=== PATIENT | female | born 1945 | race Caucasian/White ===

== ENCOUNTER 2020-02-12 11:14 | Inpatient (IN) | payer MEDICARE, BC ==
[2020-02-13 02:57] VITALS: BP 130/80
[2020-02-13] MEDS ORDERED: Magnesium Hydroxide (MOM) 30 mL UDC PO PRN ×3 (03:16→03:30)
[2020-02-13] MEDS ORDERED: Maalox 30 mL Cup PO PRN ×3 (03:16→03:30)
[2020-02-13] MEDS ORDERED: Acetaminophen 500 MG TAB PO PRN (03:18)
[2020-02-13] MEDS: Multivitamin Tab PO SCH (08:10)
[2020-02-13] MEDS ORDERED: Multivitamin Tab PO SCH ×2 (09:00)
--- NOTE | 2020-02-13 13:06 | History & Physical ---
ADMIT DATE: 02/13/2020 HISTORY OF PRESENT ILLNESS: We have a 75-year-old female with hypertension and hyperlipidemia, who presents to the ER at [facility]. The patient has psychosis. The patient was transferred here. The patient admits to hypertension, hyperlipidemia. The patient denies any chest pain, shortness of breath, nausea, vomiting, abdominal pain, diarrhea. PAST MEDICAL HISTORY: 1. Hypertension. 2. Hyperlipidemia. PAST SURGICAL HISTORY: None. MEDICATIONS: List reviewed. ALLERGIES: None. SOCIAL HISTORY: Tobacco, IV drugs, ETOH negative. PHYSICAL EXAMINATION: VITAL SIGNS: Temperature is 97.6, pulse 80, respirations 20, blood pressure 130/80. HEENT: Normocephalic, atraumatic head exam. NECK: Supple. CARDIOVASCULAR: Regular rate and rhythm. LUNGS: Decreased breath sounds. ABDOMEN: Soft, nontender. EXTREMITIES: No edema, cyanosis or clubbing. NEUROLOGIC: Cranial nerve exam is grossly intact. ASSESSMENT AND PLAN: 1. Hypertension. 2. Hyperlipidemia. 3. Hyperglycemia. PLAN: The patient will be continued on home meds. We will discuss with psychiatrist plus medical management. JOB# [id number]
[2020-02-13 13:09] LABS: CHOLESTEROL 206 mg/dL (<200); LDL CHOLESTEROL 125 mg/dL (0-129); TRIGLYCERIDES 169 mg/dL (30-150)
--- NOTE | 2020-02-13 14:07 | History & Physical ---
ADMIT DATE: 02/13/2020 IDENTIFYING INFORMATION: The patient is a 75-year-old female. CHIEF COMPLAINT: "I'm here because my back hurts." HISTORY OF PRESENT ILLNESS: Danger to self, grave disability. The patient became agitated when her increase her psych medication. The patient also not eating and not sleeping, unable to care for herself under the care of Dr. England. When I talked to her the patient has no clue why she is here, she said "I am here because of my back problems. I told her she was in psych facility and she could not explain it. She said she was hospitalized before in a hospital because of back pain and because of similar situation, so she was not a very good historian. The patient denies any auditory or visual hallucinations. She reports she sleeps well, eats well. The patient onset of illness. The patient is not sure if she has any psychiatric condition, however, she has a history of depression. The patient with a history of depression and anxiety. The patient denies prior suicide attempt. She reports she was hospitalized because of her back problems. She does see a psychiatrist and she said because of back pain, so she is a poor historian, very poor insight. She denies prior suicide attempt. She does not want to harm herself today or anyone. The patient denies feeling paranoid. She sleeps well, eats well. PAST PSYCHIATRIC HISTORY: One prior hospitalization because of back pain in a psychiatric facility. SUBSTANCE ABUSE HISTORY: The patient denies. MEDICAL HISTORY: Deferred to the medical doctor. ALLERGIES: THE PATIENT IS ALLERGIC TO LEVOFLOXACIN, PENICILLIN, SULFAMETHOXAZOLE, . MEDICATIONS: The patient is not on any psychotropic medication. FAMILY AND SOCIAL HISTORY: The patient reports she has been a long time. Unable to tell me how long she has 2 children, a boy and a girl. The patient reports she has high school education, some college. She said she is reluctant. She is currently retired. Denies substance abuse, denies family psychotic disorder; however, she is a poor historian. MENTAL STATUS EXAMINATION: The patient was appropriately dressed, not very groomed. She was in bed. Her affect is flat. Thoughts are concrete. Speech is coherent. She was in a long-term memory is good. She remember her age, date of . Recent memory is poor. She is not sure of the results of the situation that led to her admission. The patient reports sleeps well, eats well. The patient denies any intent to harm herself or anyone; however, she has been unable to take care of her ADLs. The patient was a poor historian, unable to tell me the day. She unable tell me the materials associate. Long-term goals poor, cannot remember the materials associate. Her concentration is poor. Unable to answer questions appropriately. Recent memory is poor, does not really remember the events that her admission. Her insight about her illness is poor, does not realize her problems are. Judgment is poor with her being unable to care for self. 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 Her assets, she wants to get help. Negative poor coping skills. PLAN: The patient will be started on Cymbalta. We will do group therapy, milieu therapy, and individual therapy. ESTIMATED LENGTH OF STAY: 3-7 days. DISCHARGE CRITERIA: Decreasing depression, able to go to after discharge, outpatient treatment. JOB# [id number] FERNANDO
[2020-02-14 08:07] LABS: A1C 6.9 % (4.8-5.6)
[2020-02-14] MEDS: Atorvastatin Calcium 10 MG TAB PO SCH (09:10)
[2020-02-14] MEDS: Multivitamin Tab PO SCH (09:12)
--- NOTE | 2020-02-14 15:52 | Internal Medicine Prog Note ---
Internal Medicine Subjective - Subjective Service Date: 02/14/20 Patient seen and examined:: without staff Patient is:: awake Patient Complaints of:: congestion Per staff patient has:: no adverse event, no episodes of fall Internal Medicine Objective - Results Recent Labs: Laboratory Last Values POC Glucose 132 MG/DL (70 - 105) H 02/13/20 02:47 Hemoglobin A1c 6.9 % (4.8-5.6) H 02/13/20 10:35 Triglycerides 169 mg/dL (30-150) H 02/13/20 10:35 Cholesterol 206 mg/dL (<200) H 02/13/20 10:35 LDL Cholesterol 125 mg/dL (0-129) 02/13/20 10:35 HDL Cholesterol 53 mg/dL (>55) L 02/13/20 10:35 - Physical Exam Vitals and I&O: Vital Signs Temp 97.9 F 02/14/20 14:00 Pulse 92 02/14/20 14:00 Resp 20 02/14/20 14:00 BP 103/75 02/14/20 14:00 Pulse Ox 97 02/14/20 14:00 Intake & Output 02/13/20 02/14/20 02/14/20 18:59 06:59 18:59 Intake Total 1200 120 Balance 1200 120 Intake: Oral 1200 120 Other: # Voids 3 # Bowel Movements 3 Stool Characteristics Soft Soft Soft Brown Brown Brown Active Medications: Current Medications Acetaminophen (Tylenol) 650 mg PO Q4H PRN PRN Reason: Pain (Mild 1-3) Stop: 04/13/20 03:15 Acetaminophen (Tylenol Extra Strength) 1,000 mg PO Q6H PRN PRN Reason: Pain (Moderate 4-6) Stop: 04/13/20 03:17 Al Hydrox/Mg Hydrox/Simethicone (Maalox) 30 ml PO Q4HR PRN PRN Reason: GI DISTRESS Stop: 04/13/20 03:29 Atorvastatin Calcium (Lipitor) 10 mg PO DAILY [facility]; Protocol Stop: 04/14/20 08:59 Last Admin: 02/14/20 09:10 Dose: 10 mg Duloxetine HCl (Cymbalta) 60 mg PO DAILY [facility]; Protocol Stop: 04/14/20 09:59 Last Admin: 02/14/20 11:00 Dose: 60 mg Hydrochlorothiazide (Hctz) 12.5 mg PO DAILY [facility] Stop: 04/14/20 08:59 Last Admin: 02/14/20 09:10 Dose: 12.5 mg Ibuprofen (Motrin) 400 mg PO Q4H PRN PRN Reason: Pain (Severe 7-10) Stop: 04/13/20 03:17 Lorazepam (Ativan) 0.5 mg PO Q4HR PRN; Protocol PRN Reason: Anxiety Stop: 03/14/20 03:29 Magnesium Hydroxide (Milk Of Magnesia) 30 ml PO HS PRN PRN Reason: Constipation Metoprolol Tartrate (Lopressor) 25 mg PO BID [facility] Stop: 04/14/20 08:59 Last Admin: 02/14/20 09:12 Dose: 25 mg Multivitamins/Vitamin C (Theragran) 1 tab PO DAILY [facility] Stop: 04/13/20 08:59 Last Admin: 02/14/20 09:12 Dose: 1 tab Zolpidem Tartrate (Ambien) 5 mg PO HS PRN PRN Reason: Insomnia Stop: 04/13/20 03:29 General: weak HEENT: NC/AT, PERRLA, EOMI Neck: Supple Lungs: CTAB Cardiovascular: RRR, Normal S1, Normal S2 Abdomen: soft, non-tender Extremities: clear - Procedures Procedures: Procedures Procedure Code Date APPLY FOREARM SPLINT 64924 11/07/15 GROUP PSYCHOTHERAPY 21602 11/20/15 GROUP PSYCHOTHERAPY [id number] 11/20/15 IMMOBILIZATION OF LEFT LOWER ARM USING SPLINT [id number] 11/07/15 OTHER GROUP THERAPY 94.44 11/20/14 REPOSITION LEFT RADIUS WITH INT FIX, OPEN APPROACH [id number] 11/16/15 TREAT FX RAD INTRA-ARTICUL 05476 11/16/15 Internal Medicine Assmt/Plan - Assessment Assessment: 1. HTN 2. D.M. 3. Hypothyroidism - Plan Plan: check cbc, cmp reivewed labs d/w r.n. reviewed complete medical records
[2020-02-15] MEDS ORDERED: CHLORTHALIDONE 12.5 MG PO SCH (09:00)
[2020-02-15] MEDS ORDERED: PRAVASTATIN SODIUM 40 MG PO SCH (09:00)
[2020-02-15] MEDS: Atorvastatin Calcium 10 MG TAB PO SCH (09:07)
[2020-02-15] MEDS: Multivitamin Tab PO SCH (09:08)
[2020-02-15 15:38] LABS: % NEUTROPHILS 68.1 % (40-70); HEMATOCRIT 42.7 % (36-48); LYMPHOCYTES % (AUTO) 25.1 % (20.5-51.5); MEAN CORPUSCULAR HEMOGLOBIN 29 pg (27-31); MEAN CORPUSCULAR HGB CONC 33 % (32-36); MEAN CORPUSCULAR VOLUME 89 fL (79.0-98.0); PLATELET COUNT 210 K/uL (130-430); RED BLOOD COUNT 4.82 MIL/uL (4.2-6.2); RED CELL DISTRIBUTION WIDTH 14.3 % (9.0-15.0); WHITE BLOOD COUNT 7.9 K/uL (4.8-10.8)
[2020-02-15 15:39] LABS: BASOPHILS # (AUTO) 0.1 K/uL (0.0-0.2); BASOPHILS % (AUTO) 0.7 % (0.0-2.0); EOSINOPHILS # (AUTO) 0.1 K/uL (0.0-0.4); EOSINOPHILS % (AUTO) 0.9 % (0-4); MONOCYTES # (AUTO) 0.4 K/uL (0.0-1.0); MONOCYTES % (AUTO) 5.2 % (1.7-9.3); NEUTROPHILS # (AUTO) 5.4 K/uL (1.8-7.7)
--- NOTE | 2020-02-15 16:00 | Internal Medicine Prog Note ---
Internal Medicine Subjective - Subjective Service Date: 02/15/20 Patient seen and examined:: without staff Patient is:: awake Patient Complaints of:: congestion Per staff patient has:: no adverse event, no episodes of fall Internal Medicine Objective - Results Result Diagrams: 02/15/20 13:30 Recent Labs: Laboratory Last Values WBC 7.9 K/uL (4.8-10.8) 02/15/20 13:30 RBC 4.82 MIL/uL (4.2-6.2) 02/15/20 13:30 Hgb 14.0 g/dL (12.0-16.0) 02/15/20 13:30 Hct 42.7 % (36-48) 02/15/20 13:30 MCV 89 fL (79.0-98.0) 02/15/20 13:30 MCH 29 pg (27-31) 02/15/20 13:30 MCHC 33 % (32-36) 02/15/20 13:30 RDW 14.3 % (9.0-15.0) 02/15/20 13:30 Plt Count 210 K/uL (130-430) 02/15/20 13:30 MPV 8.8 fl (7.4-10.4) 02/15/20 13:30 Neut % (Auto) 68.1 % (40-70) 02/15/20 13:30 Lymph % (Auto) 25.1 % (20.5-51.5) 02/15/20 13:30 Pine % (Auto) 5.2 % (1.7-9.3) 02/15/20 13:30 Eos % (Auto) 0.9 % (0-4) 02/15/20 13:30 Baso % (Auto) 0.7 % (0.0-2.0) 02/15/20 13:30 Neut # (Auto) 5.4 K/uL (1.8-7.7) 02/15/20 13:30 Lymph # (Auto) 2.0 K/uL (1.0-5.5) 02/15/20 13:30 Pine # (Auto) 0.4 K/uL (0.0-1.0) 02/15/20 13:30 Eos # (Auto) 0.1 K/uL (0.0-0.4) 02/15/20 13:30 Baso # (Auto) 0.1 K/uL (0.0-0.2) 02/15/20 13:30 POC Glucose 132 MG/DL (70 - 105) H 02/13/20 02:47 Hemoglobin A1c 6.9 % (4.8-5.6) H 02/13/20 10:35 Triglycerides 169 mg/dL (30-150) H 02/13/20 10:35 Cholesterol 206 mg/dL (<200) H 02/13/20 10:35 LDL Cholesterol 125 mg/dL (0-129) 02/13/20 10:35 HDL Cholesterol 53 mg/dL (>55) L 02/13/20 10:35 TSH 3.96 uIU/ml (0.358-3.740) H 02/15/20 13:30 Coronavirus (PCR) NOT DETECTED (NOT DETECTD) 02/13/20 18:40 - Physical Exam Vitals and I&O: Vital Signs Temp 97.7 F 02/15/20 14:00 Pulse 91 02/15/20 14:00 Resp 20 02/15/20 14:00 BP 143/54 02/15/20 14:00 Pulse Ox 96 02/15/20 14:00 Intake & Output 02/14/20 02/15/20 02/15/20 18:59 06:59 18:59 Intake Total 860 120 Balance 860 120 Intake: Oral 860 120 Other: # Voids 3 3 # Bowel Movements 0 Stool Characteristics Soft Soft Soft Brown Brown Brown Active Medications: Current Medications Acetaminophen (Tylenol) 650 mg PO Q4H PRN PRN Reason: Pain (Mild 1-3) Stop: 04/13/20 03:15 Acetaminophen (Tylenol Extra Strength) 1,000 mg PO Q6H PRN PRN Reason: Pain (Moderate 4-6) Stop: 04/13/20 03:17 Al Hydrox/Mg Hydrox/Simethicone (Maalox) 30 ml PO Q4HR PRN PRN Reason: GI DISTRESS Stop: 04/13/20 03:29 Atorvastatin Calcium (Lipitor) 10 mg PO DAILY [facility]; Protocol Stop: 04/14/20 08:59 Last Admin: 02/15/20 09:07 Dose: 10 mg Duloxetine HCl (Cymbalta) 60 mg PO DAILY [facility]; Protocol Stop: 04/14/20 09:59 Last Admin: 02/15/20 09:07 Dose: 60 mg Hydrochlorothiazide (Hctz) 12.5 mg PO DAILY [facility] Stop: 04/14/20 08:59 Last Admin: 02/15/20 09:07 Dose: 12.5 mg Ibuprofen (Motrin) 400 mg PO Q4H PRN PRN Reason: Pain (Severe 7-10) Stop: 04/13/20 03:17 Lorazepam (Ativan) 0.5 mg PO Q4HR PRN; Protocol PRN Reason: Anxiety Stop: 03/14/20 03:29 Last Admin: 02/15/20 06:58 Dose: 0.5 mg Magnesium Hydroxide (Milk Of Magnesia) 30 ml PO HS PRN PRN Reason: Constipation Metoprolol Succinate (Toprol Xl) 50 mg PO DAILY [facility] Stop: 04/15/20 08:59 Last Admin: 02/15/20 09:07 Dose: 50 mg Multivitamins/Vitamin C (Theragran) 1 tab PO DAILY [facility] Stop: 04/13/20 08:59 Last Admin: 02/15/20 09:08 Dose: 1 tab Quetiapine Fumarate (Seroquel) 12.5 mg PO BID [facility]; Protocol Stop: 04/15/20 16:59 Zolpidem Tartrate (Ambien) 5 mg PO HS PRN PRN Reason: Insomnia Stop: 04/13/20 03:29 General: weak HEENT: NC/AT, PERRLA, EOMI Neck: Supple Lungs: CTAB Cardiovascular: RRR, Normal S1, Normal S2 Abdomen: soft, non-tender Extremities: clear - Procedures Procedures: Procedures Procedure Code Date APPLY FOREARM SPLINT 25577 11/07/15 GROUP PSYCHOTHERAPY 05430 11/20/15 GROUP PSYCHOTHERAPY GZHZZZZ 11/20/15 IMMOBILIZATION OF LEFT LOWER ARM USING SPLINT [id number] 11/07/15 OTHER GROUP THERAPY 94.44 11/20/14 REPOSITION LEFT RADIUS WITH INT FIX, OPEN APPROACH [id number] 11/16/15 TREAT FX RAD INTRA-ARTICUL 63902 11/16/15 Internal Medicine Assmt/Plan - Assessment Assessment: 1. HTN 2. D.M. 3. Hypothyroidism - Plan Plan: check bmp d/w r.n. reviewed complete medical records Nutritional Asmnt/Malnutr-PDOC - Dietary Evaluation Malnutrition Findings (Please click <Entered> for more info): Nutritional Asmnt/Malnutrition Start: 02/15/20 11: 54 Text: Status: Complete Freq: Protocol: Document 02/15/20 12:02 ADIS (Rec: 02/15/20 12:14 ADIS [id number]) Nutritional Asmnt/Malnutrition Patient General Information Nutritional Screening Moderate Risk Diagnosis Psychosis Pertinent Medical Hx/Surgical Hx HTN, Hyperlipidemia Subjective Information Pt is a 75-year-old female admitted on 02/12 d/t grave disability and danger to self. Pt is eating an estimated 0- 75%% of meals Per Meal/ Nutrition Activity Record since admit date (x2 days), pt ate 75% meals on admit day and refused breakfast and lunch yesterday, eating 25% dinner. Dietary is currently providing an estimated 2020 kcals and 95 gm Pro. Visited pt in room, HEAD [employer] WAITER/WAITRESS stated the patient is refusing everything today, just having liquids. Got her a Glucerna shake in case she decides not to eat lunch. Pt did not want to talk further. Pt need some adjusting time, will F/U in 3- 5 days and continue to monitor PO intake and provide Glucerna as appropriate. Recommend adding CCHO to current diet d/t labs (02/12) A1c 6.9%, POC glucose 132. Anthropometrics HT: 58 WT: 203 LB (92.27 kg) ABW: 156 LB (70.80 kg) BMI: 30.87 (Obese, class I) GI/ Skin Integrity GI: WNL, Soft, Large, Non- tender BM: 02/12 x3 I/O: 980/Not Noted Skin: Wound and bruises, RT/LT hand bruise, LT Forearm skin tear Ari: 17 Diet Order: Cardiac Estimated Energy Needs: (Obese , ABW) 2371-1882 kcals (20-25 kcals/ kg) 60-70g Pro (0.8-1.0 g/kg) 9403-1088 ml (20-25 ml/kg) Current Diet Order/ Nutrition Support Cardiac Patient / S.O Can Pertinent Medications Maalox (PRN), Lipitor, Hydrochlorothiazide, MOM (PRN) , Theragran Pertinent Labs 02/12: Triglycerides 169, Cholesterol 206, HDL 53, A1c 6 .9%, POC glucose 132 Nutritional Hx/Data Height 1.73 m Height (Calculated Centimeters) 172.7 Current Weight (lbs) 92.079 kg Weight (Calculated Kilograms) 92.1 Weight (Calculated Grams) 74777.3 [place] Body Weight 140 LB (63.64 kg) % [place] Body Weight 145 Body Mass Index (BMI) 30.9 Weight Status Obese GI Symptoms Last BM 02/12 x3 Skin Integrity/Comment: Skin: Wound and bruises, RT/LT hand bruise, LT Forearm skin tear Ari: 17 Current %PO Fair (50-74%) Estimated Nutritional Goals BEE in Kcals: Adj wt of IBW Calories/Kcals/Kg 20-25 Kcals Calculated 6395-0995 Protein: Adj wt of IBW Protein g/k.8-1.0 Protein Calculated 60-70 Fluid: ml 5452-7351 ml (20-25 ml/kg) Nutritional Problem 2. Problem Problem Obese, class I Etiology r/t consistent energy overconsumption Signs/Symptoms: aeb BMI >30 (30.90). 1. Problem Problem Impaired nutrient utilization Etiology r/t endocrine dysfuction Signs/Symptoms: aeb labs (02/12) A1c 6.9%, POC glucose 132. Intervention/Recommendation Comments 1.Recommend adding CCHO to current diet Rx. 2.Provide Glucerna Hunger Smart as appropriate when PO < 50%. Expected Outcomes/Goals Expected Outcomes/Goals 1.PO intake to meet 75% of estimated nutritional needs. 2.Monitor PO intake, wt, nutrition related labs to trend WNL, and skin integrity to trend WNL. 3.F/U as moderate risk in 3-5 days, 02/17-02/19.
--- NOTE | 2020-02-15 18:05 | Progress Notes ---
DATE: 02/15/2020 [id number] SUBJECTIVE: Chart was reviewed and the patient interviewed. Also discussed the patient's condition with the staff and reviewed records and labs. The patient is still angry and in irritable mood. The patient also is exhibiting lack of motivations and is still showing poor interest and isolative and withdrawn. The patient also is sleeping a lot and refusing to eat. Also, the patient has episodes of yelling and screaming for no reason. During interview, the patient seems to be responding to stimuli and easily irritable and easily agitated. Otherwise, the patient is compliant with taking Cymbalta that was increased to 60 mg every day yesterday with no side effects. ASSESSMENT: The patient is still depressed, but also seems to be psychotic and agitated. TREATMENT PLAN: Continue to monitor behavior and condition closely. Also, we will add Seroquel in a dose of 12.5 mg twice a day. Also, continue to work on both her ineffective coping as well as her psychosis and continue to follow up closely. JOB# [id number]
--- NOTE | 2020-02-15 18:35 | Progress Notes ---
DATE: 02/14/2020 PSYCHIATRIC PROGRESS NOTE This also will be for yesterday 02/14/2020. SUBJECTIVE: Chart reviewed and the patient interviewed. Also discussed the patient's condition with the staff and reviewed records and labs. The patient continued to be in a depressed mood and isolative and withdrawn. The patient also is not interacting much with peers or others and she wants to be left alone. The patient also is easily irritable and easily agitated, but is not exhibiting any behavioral problems except at times seems to be actively responding. Also, the patient is selectively interacting with others and selectively mute during interview. The patient is showing no motivations and seems to be hopeless. ASSESSMENT: The patient is still severely depressed and seems to be psychotic and responding. TREATMENT PLAN: Continue to monitor her behavior and her condition. Also, we will increase Cymbalta to 60 mg every day and continue to follow up closely. JOB# [id number]
[2020-02-16] MEDS: Atorvastatin Calcium 10 MG TAB PO SCH (08:18)
[2020-02-16] MEDS: Multivitamin Tab PO SCH (08:19)
--- NOTE | 2020-02-16 11:40 | Progress Notes ---
DATE: 02/16/2020 Covering for Iker England M.D. SUBJECTIVE: The patient was interviewed. Case was discussed with staff. Chart and records were reviewed. The patient has had poor motivation for treatment, has been withdrawn, has been depressed, has been with poor hygiene. Staff needs significant prompting and assistance to help the patient attend to her basic hygiene and eat her meals. The patient was recently started on Seroquel. No side effects noted. The patient is selectively mute throughout the interview. Poor eye contact, not engaging at all with the interview, appears to be restless and anxious in her wheelchair. MENTAL STATUS EXAMINATION: The patient is with improved hygiene, freshly showered with the assistance of staff. She is restless and anxious in her wheelchair. She has poor eye contact. Speech is selectively mute. Mood and affect appear to be anxious and labile. Thought process appears to be somewhat disorganized at this time. Unable to assess for suicidal or homicidal thoughts. She appears to be internally preoccupied. The patient is alert and oriented to her name, otherwise unable to assess. Insight, judgment and impulse control appear to be quite poor at this time. ASSESSMENT AND PLAN: The patient continues to require acute inpatient psychiatric hospitalization. We will continue her medications as prescribed. No side effects have been noted. We will also encourage the patient to verbalize her needs and participate in group and milieu therapy. JOB# [id number]
--- NOTE | 2020-02-16 14:54 | Internal Medicine Prog Note ---
Internal Medicine Subjective - Subjective Service Date: 02/16/20 Patient seen and examined:: without staff (no polyuria, no polyphagia, no polydypsia) Patient is:: awake Patient Complaints of:: congestion Per staff patient has:: no adverse event, no episodes of fall Internal Medicine Objective - Results Result Diagrams: 02/15/20 13:30 Recent Labs: Laboratory Last Values WBC 7.9 K/uL (4.8-10.8) 02/15/20 13:30 RBC 4.82 MIL/uL (4.2-6.2) 02/15/20 13:30 Hgb 14.0 g/dL (12.0-16.0) 02/15/20 13:30 Hct 42.7 % (36-48) 02/15/20 13:30 MCV 89 fL (79.0-98.0) 02/15/20 13:30 MCH 29 pg (27-31) 02/15/20 13:30 MCHC 33 % (32-36) 02/15/20 13:30 RDW 14.3 % (9.0-15.0) 02/15/20 13:30 Plt Count 210 K/uL (130-430) 02/15/20 13:30 MPV 8.8 fl (7.4-10.4) 02/15/20 13:30 Neut % (Auto) 68.1 % (40-70) 02/15/20 13:30 Lymph % (Auto) 25.1 % (20.5-51.5) 02/15/20 13:30 [place] % (Auto) 5.2 % (1.7-9.3) 02/15/20 13:30 Eos % (Auto) 0.9 % (0-4) 02/15/20 13:30 Baso % (Auto) 0.7 % (0.0-2.0) 02/15/20 13:30 Neut # (Auto) 5.4 K/uL (1.8-7.7) 02/15/20 13:30 Lymph # (Auto) 2.0 K/uL (1.0-5.5) 02/15/20 13:30 [place] # (Auto) 0.4 K/uL (0.0-1.0) 02/15/20 13:30 Eos # (Auto) 0.1 K/uL (0.0-0.4) 02/15/20 13:30 Baso # (Auto) 0.1 K/uL (0.0-0.2) 02/15/20 13:30 POC Glucose 132 MG/DL (70 - 105) H 02/13/20 02:47 Hemoglobin A1c 6.9 % (4.8-5.6) H 02/13/20 10:35 Triglycerides 169 mg/dL (30-150) H 02/13/20 10:35 Cholesterol 206 mg/dL (<200) H 02/13/20 10:35 LDL Cholesterol 125 mg/dL (0-129) 02/13/20 10:35 HDL Cholesterol 53 mg/dL (>55) L 02/13/20 10:35 TSH 3.96 uIU/ml (0.358-3.740) H 02/15/20 13:30 Coronavirus (PCR) NOT DETECTED (NOT DETECTD) 02/13/20 18:40 - Physical Exam Vitals and I&O: Vital Signs Temp 97.4 F 02/16/20 06:11 Pulse 84 02/16/20 08:19 Resp 19 02/16/20 06:11 BP 153/71 02/16/20 08:19 Pulse Ox 94 02/16/20 06:11 Intake & Output 02/15/20 02/16/20 02/16/20 18:59 06:59 18:59 Intake Total 860 300 Output Total 1 Balance 860 299 Intake: Oral 860 300 Output: Urine/Stool Mix 1 Other: # Voids 3 1 # Bowel Movements 1 0 Stool Characteristics Soft Soft Soft Brown Brown Brown Active Medications: Current Medications Acetaminophen (Tylenol) 650 mg PO Q4H PRN PRN Reason: Pain (Mild 1-3) Stop: 04/13/20 03:15 Acetaminophen (Tylenol Extra Strength) 1,000 mg PO Q6H PRN PRN Reason: Pain (Moderate 4-6) Stop: 04/13/20 03:17 Al Hydrox/Mg Hydrox/Simethicone (Maalox) 30 ml PO Q4HR PRN PRN Reason: GI DISTRESS Stop: 04/13/20 03:29 Atorvastatin Calcium (Lipitor) 10 mg PO DAILY [facility]; Protocol Stop: 04/14/20 08:59 Last Admin: 02/16/20 08:18 Dose: 10 mg Duloxetine HCl (Cymbalta) 60 mg PO DAILY [facility]; Protocol Stop: 04/14/20 09:59 Last Admin: 02/16/20 08:18 Dose: 60 mg Hydrochlorothiazide (Hctz) 12.5 mg PO DAILY [facility] Stop: 04/14/20 08:59 Last Admin: 02/16/20 08:19 Dose: 12.5 mg Ibuprofen (Motrin) 400 mg PO Q4H PRN PRN Reason: Pain (Severe 7-10) Stop: 04/13/20 03:17 Lorazepam (Ativan) 0.5 mg PO Q4HR PRN; Protocol PRN Reason: Anxiety Stop: 03/14/20 03:29 Last Admin: 02/15/20 06:58 Dose: 0.5 mg Magnesium Hydroxide (Milk Of Magnesia) 30 ml PO HS PRN PRN Reason: Constipation Metoprolol Succinate (Toprol Xl) 50 mg PO DAILY [facility] Stop: 04/15/20 08:59 Last Admin: 02/16/20 08:19 Dose: 50 mg Multivitamins/Vitamin C (Theragran) 1 tab PO DAILY [facility] Stop: 04/13/20 08:59 Last Admin: 02/16/20 08:19 Dose: 1 tab Quetiapine Fumarate (Seroquel) 12.5 mg PO BID [facility]; Protocol Stop: 04/15/20 16:59 Last Admin: 02/16/20 08:19 Dose: 12.5 mg Zolpidem Tartrate (Ambien) 5 mg PO HS PRN PRN Reason: Insomnia Stop: 04/13/20 03:29 General: weak HEENT: NC/AT, PERRLA, EOMI Neck: Supple Lungs: CTAB Cardiovascular: RRR, Normal S1, Normal S2 Abdomen: soft, non-tender Extremities: clear - Procedures Procedures: Procedures Procedure Code Date APPLY FOREARM SPLINT 21214 11/07/15 GROUP PSYCHOTHERAPY 82564 11/20/15 GROUP PSYCHOTHERAPY GZHZZZZ 11/20/15 IMMOBILIZATION OF LEFT LOWER ARM USING SPLINT [id number] 11/07/15 OTHER GROUP THERAPY 94.44 11/20/14 REPOSITION LEFT RADIUS WITH INT FIX, OPEN APPROACH [id number] 11/16/15 TREAT FX RAD INTRA-ARTICUL 40456 11/16/15 Internal Medicine Assmt/Plan - Assessment Assessment: 1. DM, new diagnosis 2. HTN 3. Hypothyroidism - Plan Plan: will start glucophage once lab results are back d/w r.n. reviewed complete medical records Nutritional Asmnt/Malnutr-PDOC - Dietary Evaluation Malnutrition Findings (Please click <Entered> for more info): Nutritional Asmnt/Malnutrition Start: 02/15/20 11: 54 Text: Status: Complete Freq: Protocol: Document 02/15/20 12:02 ADIS (Rec: 02/15/20 12:14 ADIS [email or web address] [email or web address]) Nutritional Asmnt/Malnutrition Patient General Information Nutritional Screening Moderate Risk Diagnosis Psychosis Pertinent Medical Hx/Surgical Hx HTN, Hyperlipidemia Subjective Information Pt is a 75-year-old female admitted on 02/12 d/t grave disability and danger to self. Pt is eating an estimated 0- 75%% of meals Per Meal/ Nutrition Activity Record since admit date (x2 days), pt ate 75% meals on admit day and refused breakfast and lunch yesterday, eating 25% dinner. Dietary is currently providing an estimated 2020 kcals and 95 gm Pro. Visited pt in room, DIRECTOR OF DEVELOPMENT stated the patient is refusing everything today, just having liquids. Got her a Glucerna shake in case she decides not to eat lunch. Pt did not want to talk further. Pt need some adjusting time, will F/U in 3- 5 days and continue to monitor PO intake and provide Glucerna as appropriate. Recommend adding CCHO to current diet d/t labs (02/12) A1c 6.9%, POC glucose 132. Anthropometrics HT: 58 WT: 203 LB (92.27 kg) ABW: 156 LB (70.80 kg) BMI: 30.87 (Obese, class I) GI/ Skin Integrity GI: WNL, Soft, Large, Non- tender BM: 02/12 x3 I/O: 980/Not Noted Skin: Wound and bruises, RT/LT hand bruise, LT Forearm skin tear Ari: 17 Diet Order: Cardiac Estimated Energy Needs: (Obese , ABW) 1324-8797 kcals (20-25 kcals/ kg) 60-70g Pro (0.8-1.0 g/kg) 6207-0394 ml (20-25 ml/kg) Current Diet Order/ Nutrition Support Cardiac Patient / S.O Can Pertinent Medications Maalox (PRN), Lipitor, Hydrochlorothiazide, MOM (PRN) , Theragran Pertinent Labs 02/12: Triglycerides 169, Cholesterol 206, HDL 53, A1c 6 .9%, POC glucose 132 Nutritional Hx/Data Height 1.73 m Height (Calculated Centimeters) 172.7 Current Weight (lbs) 92.079 kg Weight (Calculated Kilograms) 92.1 Weight (Calculated Grams) 40965.3 [place] Body Weight 140 LB (63.64 kg) % [place] Body Weight 145 Body Mass Index (BMI) 30.9 Weight Status Obese GI Symptoms Last BM 02/12 x3 Skin Integrity/Comment: Skin: Wound and bruises, RT/LT hand bruise, LT Forearm skin tear Ari: 17 Current %PO Fair (50-74%) Estimated Nutritional Goals BEE in Kcals: Adj wt of IBW Calories/Kcals/Kg 20-25 Kcals Calculated 2435-2052 Protein: Adj wt of IBW Protein g/k.8-1.0 Protein Calculated 60-70 Fluid: ml 7933-3605 ml (20-25 ml/kg) Nutritional Problem 2. Problem Problem Obese, class I Etiology r/t consistent energy overconsumption Signs/Symptoms: aeb BMI >30 (30.90). 1. Problem Problem Impaired nutrient utilization Etiology r/t endocrine dysfuction Signs/Symptoms: aeb labs (02/12) A1c 6.9%, POC glucose 132. Intervention/Recommendation Comments 1.Recommend adding CCHO to current diet Rx. 2.Provide Glucerna Hunger Smart as appropriate when PO < 50%. Expected Outcomes/Goals Expected Outcomes/Goals 1.PO intake to meet 75% of estimated nutritional needs. 2.Monitor PO intake, wt, nutrition related labs to trend WNL, and skin integrity to trend WNL. 3.F/U as moderate risk in 3-5 days, 02/17-02/19.
[2020-02-17] MEDS: Multivitamin Tab PO SCH (09:21)
[2020-02-17] MEDS: Atorvastatin Calcium 10 MG TAB PO SCH (09:21)
--- NOTE | 2020-02-17 12:44 | Progress Notes ---
DATE: 02/17/2020 Covering for Iker England M.D. SUBJECTIVE: The patient was interviewed. Case was discussed with staff. Chart and records were reviewed. Per the staff, the patient has been more calm today, but remains selectively mute, withdrawn, forgetful and confused. The patient was visited this morning in the dayroom. She is sitting in her wheelchair, looking down, not able to maintain any eye contact, remains selectively mute, not answering any questions. Appears with improved hygiene due to staff assistance in helping the patient take a shower and clean herself up. The patient otherwise is disorganized and uncooperative and has no plan for self-care. MENTAL STATUS EXAMINATION: The patient is an elderly female sitting in the wheelchair. Poor eye contact, looking down on the ground, disorganized thinking, selectively mute, very poor insight, judgment and impulse control. Alert and oriented to her name, otherwise unable to assess. ASSESSMENT AND PLAN: We will continue the patient's acute psychiatric hospitalization given the severity of her symptoms. Also, encouraged the patient to verbalize needs and participate in group and milieu therapy and also attend to her hygiene. We will continue medications for now. No side effects have been noted. JOB# [id number]
--- NOTE | 2020-02-17 14:29 | Internal Medicine Prog Note ---
Internal Medicine Subjective - Subjective Service Date: 02/17/20 Patient seen and examined:: without staff Patient is:: awake Patient Complaints of:: congestion Per staff patient has:: no adverse event, no episodes of fall Internal Medicine Objective - Results Result Diagrams: 02/15/20 13:30 Recent Labs: Laboratory Last Values WBC 7.9 K/uL (4.8-10.8) 02/15/20 13:30 RBC 4.82 MIL/uL (4.2-6.2) 02/15/20 13:30 Hgb 14.0 g/dL (12.0-16.0) 02/15/20 13:30 Hct 42.7 % (36-48) 02/15/20 13:30 MCV 89 fL (79.0-98.0) 02/15/20 13:30 MCH 29 pg (27-31) 02/15/20 13:30 MCHC 33 % (32-36) 02/15/20 13:30 RDW 14.3 % (9.0-15.0) 02/15/20 13:30 Plt Count 210 K/uL (130-430) 02/15/20 13:30 MPV 8.8 fl (7.4-10.4) 02/15/20 13:30 Neut % (Auto) 68.1 % (40-70) 02/15/20 13:30 Lymph % (Auto) 25.1 % (20.5-51.5) 02/15/20 13:30 [place] % (Auto) 5.2 % (1.7-9.3) 02/15/20 13:30 Eos % (Auto) 0.9 % (0-4) 02/15/20 13:30 Baso % (Auto) 0.7 % (0.0-2.0) 02/15/20 13:30 Neut # (Auto) 5.4 K/uL (1.8-7.7) 02/15/20 13:30 Lymph # (Auto) 2.0 K/uL (1.0-5.5) 02/15/20 13:30 [place] # (Auto) 0.4 K/uL (0.0-1.0) 02/15/20 13:30 Eos # (Auto) 0.1 K/uL (0.0-0.4) 02/15/20 13:30 Baso # (Auto) 0.1 K/uL (0.0-0.2) 02/15/20 13:30 POC Glucose 132 MG/DL (70 - 105) H 02/13/20 02:47 Hemoglobin A1c 6.9 % (4.8-5.6) H 02/13/20 10:35 Triglycerides 169 mg/dL (30-150) H 02/13/20 10:35 Cholesterol 206 mg/dL (<200) H 02/13/20 10:35 LDL Cholesterol 125 mg/dL (0-129) 02/13/20 10:35 HDL Cholesterol 53 mg/dL (>55) L 02/13/20 10:35 TSH 3.96 uIU/ml (0.358-3.740) H 02/15/20 13:30 Coronavirus (PCR) NOT DETECTED (NOT DETECTD) 02/13/20 18:40 - Physical Exam Vitals and I&O: Vital Signs Temp 97.3 F 02/17/20 05:58 Pulse 91 02/17/20 09:22 Resp 20 02/17/20 08:00 BP 139/59 02/17/20 09:23 Pulse Ox 92 02/17/20 05:58 Intake & Output 02/16/20 02/17/20 02/17/20 18:59 06:59 18:59 Intake Total 660 240 Balance 660 240 Intake: Oral 660 240 Other: # Voids 2 2 # Bowel Movements 0 Stool Characteristics Soft Soft Brown Brown Active Medications: Current Medications Acetaminophen (Tylenol) 650 mg PO Q4H PRN PRN Reason: Pain (Mild 1-3) Stop: 04/13/20 03:15 Acetaminophen (Tylenol Extra Strength) 1,000 mg PO Q6H PRN PRN Reason: Pain (Moderate 4-6) Stop: 04/13/20 03:17 Al Hydrox/Mg Hydrox/Simethicone (Maalox) 30 ml PO Q4HR PRN PRN Reason: GI DISTRESS Stop: 04/13/20 03:29 Atorvastatin Calcium (Lipitor) 10 mg PO DAILY [facility]; Protocol Stop: 04/14/20 08:59 Last Admin: 02/17/20 09:21 Dose: 10 mg Duloxetine HCl (Cymbalta) 60 mg PO DAILY [facility]; Protocol Stop: 04/14/20 09:59 Last Admin: 02/17/20 09:22 Dose: 60 mg Hydrochlorothiazide (Hctz) 12.5 mg PO DAILY [facility] Stop: 04/14/20 08:59 Last Admin: 02/17/20 09:23 Dose: 12.5 mg Ibuprofen (Motrin) 400 mg PO Q4H PRN PRN Reason: Pain (Severe 7-10) Stop: 04/13/20 03:17 Lorazepam (Ativan) 0.5 mg PO Q4HR PRN; Protocol PRN Reason: Anxiety Stop: 03/14/20 03:29 Last Admin: 02/15/20 06:58 Dose: 0.5 mg Magnesium Hydroxide (Milk Of Magnesia) 30 ml PO HS PRN PRN Reason: Constipation Metoprolol Succinate (Toprol Xl) 50 mg PO DAILY [facility] Stop: 04/15/20 08:59 Last Admin: 02/17/20 09:22 Dose: 50 mg Multivitamins/Vitamin C (Theragran) 1 tab PO DAILY [facility] Stop: 04/13/20 08:59 Last Admin: 02/17/20 09:21 Dose: 1 tab Quetiapine Fumarate (Seroquel) 12.5 mg PO BID [facility]; Protocol Stop: 04/15/20 16:59 Last Admin: 02/17/20 09:22 Dose: 12.5 mg Zolpidem Tartrate (Ambien) 5 mg PO HS PRN PRN Reason: Insomnia Stop: 04/13/20 03:29 General: weak HEENT: NC/AT, PERRLA, EOMI Neck: Supple Lungs: CTAB Cardiovascular: RRR, Normal S1, Normal S2 Abdomen: soft, non-tender Extremities: clear Neurological: no change - Procedures Procedures: Procedures Procedure Code Date APPLY FOREARM SPLINT 45957 11/07/15 GROUP PSYCHOTHERAPY 30279 11/20/15 GROUP PSYCHOTHERAPY GZHZZZZ 11/20/15 IMMOBILIZATION OF LEFT LOWER ARM USING SPLINT [id number] 11/07/15 OTHER GROUP THERAPY 94.44 11/20/14 REPOSITION LEFT RADIUS WITH INT FIX, OPEN APPROACH [id number] 11/16/15 TREAT FX RAD INTRA-ARTICUL 39207 11/16/15 Internal Medicine Assmt/Plan - Assessment Assessment: 1. DM, new diagnosis 2. HTN 3. Hypothyroidism - Plan Plan: will start glucophage once lab results are back d/w r.n. reviewed complete medical records Nutritional Asmnt/Malnutr-PDOC - Dietary Evaluation Malnutrition Findings (Please click <Entered> for more info): Nutritional Asmnt/Malnutrition Start: 02/15/20 11: 54 Text: Status: Complete Freq: Protocol: Document 02/15/20 12:02 ADIS (Rec: 02/15/20 12:14 ADIS [email or web address] [id number]) Nutritional Asmnt/Malnutrition Patient General Information Nutritional Screening Moderate Risk Diagnosis Psychosis Pertinent Medical Hx/Surgical Hx HTN, Hyperlipidemia Subjective Information Pt is a 75-year-old female admitted on 02/12 d/t grave disability and danger to self. Pt is eating an estimated 0- 75%% of meals Per Meal/ Nutrition Activity Record since admit date (x2 days), pt ate 75% meals on admit day and refused breakfast and lunch yesterday, eating 25% dinner. Dietary is currently providing an estimated 2020 kcals and 95 gm Pro. Visited pt in room, WAXING MACHINE OPERATOR HELPER stated the patient is refusing everything today, just having liquids. Got her a Glucerna shake in case she decides not to eat lunch. Pt did not want to talk further. Pt need some adjusting time, will F/U in 3- 5 days and continue to monitor PO intake and provide Glucerna as appropriate. Recommend adding CCHO to current diet d/t labs (02/12) A1c 6.9%, POC glucose 132. Anthropometrics HT: 58 WT: 203 LB (92.27 kg) ABW: 156 LB (70.80 kg) BMI: 30.87 (Obese, class I) GI/ Skin Integrity GI: WNL, Soft, Large, Non- tender BM: 02/12 x3 I/O: 980/Not Noted Skin: Wound and bruises, RT/LT hand bruise, LT Forearm skin tear Ari: 17 Diet Order: Cardiac Estimated Energy Needs: (Obese , ABW) 3439-5804 kcals (20-25 kcals/ kg) 60-70g Pro (0.8-1.0 g/kg) 8123-5378 ml (20-25 ml/kg) Current Diet Order/ Nutrition Support Cardiac Patient / S.O Can Pertinent Medications Maalox (PRN), Lipitor, Hydrochlorothiazide, MOM (PRN) , Theragran Pertinent Labs 02/12: Triglycerides 169, Cholesterol 206, HDL 53, A1c 6 .9%, POC glucose 132 Nutritional Hx/Data Height 1.73 m Height (Calculated Centimeters) 172.7 Current Weight (lbs) 92.079 kg Weight (Calculated Kilograms) 92.1 Weight (Calculated Grams) 69557.3 [place] Body Weight 140 LB (63.64 kg) % [place] Body Weight 145 Body Mass Index (BMI) 30.9 Weight Status Obese GI Symptoms Last BM 02/12 x3 Skin Integrity/Comment: Skin: Wound and bruises, RT/LT hand bruise, LT Forearm skin tear Ari: 17 Current %PO Fair (50-74%) Estimated Nutritional Goals BEE in Kcals: Adj wt of IBW Calories/Kcals/Kg 20-25 Kcals Calculated 0561-1330 Protein: Adj wt of IBW Protein g/k.8-1.0 Protein Calculated 60-70 Fluid: ml 3831-4036 ml (20-25 ml/kg) Nutritional Problem 2. Problem Problem Obese, class I Etiology r/t consistent energy overconsumption Signs/Symptoms: aeb BMI >30 (30.90). 1. Problem Problem Impaired nutrient utilization Etiology r/t endocrine dysfuction Signs/Symptoms: aeb labs (02/12) A1c 6.9%, POC glucose 132. Intervention/Recommendation Comments 1.Recommend adding CCHO to current diet Rx. 2.Provide Glucerna Hunger Smart as appropriate when PO < 50%. Expected Outcomes/Goals Expected Outcomes/Goals 1.PO intake to meet 75% of estimated nutritional needs. 2.Monitor PO intake, wt, nutrition related labs to trend WNL, and skin integrity to trend WNL. 3.F/U as moderate risk in 3-5 days, 02/17-02/19.
[2020-02-18] MEDS: Multivitamin Tab PO SCH (09:03)
[2020-02-18] MEDS: Atorvastatin Calcium 10 MG TAB PO SCH (09:03)
[2020-02-18 11:14] LABS: HEMOGLOBIN 12.9 g/dL (12.0-16.0); RED BLOOD COUNT 4.31 MIL/uL (4.2-6.2); WHITE BLOOD COUNT 8.3 K/uL (4.8-10.8)
[2020-02-18 11:15] LABS: % NEUTROPHILS 64.6 % (40-70); BASOPHILS % (AUTO) 1.1 % (0.0-2.0); EOSINOPHILS % (AUTO) 1.4 % (0-4); HEMATOCRIT 37.6 % (36-48); LYMPHOCYTES # (AUTO) 2.3 K/uL (1.0-5.5); LYMPHOCYTES % (AUTO) 27.4 % (20.5-51.5); MEAN CORPUSCULAR HEMOGLOBIN 30 pg (27-31); MEAN CORPUSCULAR HGB CONC 34 % (32-36); MEAN CORPUSCULAR VOLUME 87 fL (79.0-98.0); MONOCYTES # (AUTO) 0.5 K/uL (0.0-1.0); MONOCYTES % (AUTO) 5.5 % (1.7-9.3); NEUTROPHILS # (AUTO) 5.3 K/uL (1.8-7.7); PLATELET COUNT 202 K/uL (130-430); RED CELL DISTRIBUTION WIDTH 14.3 % (9.0-15.0)
[2020-02-18 11:16] LABS: BASOPHILS # (AUTO) 0.1 K/uL (0.0-0.2); EOSINOPHILS # (AUTO) 0.1 K/uL (0.0-0.4)
--- NOTE | 2020-02-18 14:36 | Internal Medicine Prog Note ---
Internal Medicine Subjective - Subjective Service Date: 02/18/20 Patient seen and examined:: without staff Patient is:: awake Patient Complaints of:: congestion Per staff patient has:: no adverse event, no episodes of fall Internal Medicine Objective - Results Result Diagrams: 02/18/20 08:05 Recent Labs: Laboratory Last Values WBC 8.3 K/uL (4.8-10.8) 02/18/20 08:05 RBC 4.31 MIL/uL (4.2-6.2) 02/18/20 08:05 Hgb 12.9 g/dL (12.0-16.0) 02/18/20 08:05 Hct 37.6 % (36-48) 02/18/20 08:05 MCV 87 fL (79.0-98.0) 02/18/20 08:05 MCH 30 pg (27-31) 02/18/20 08:05 MCHC 34 % (32-36) 02/18/20 08:05 RDW 14.3 % (9.0-15.0) 02/18/20 08:05 Plt Count 202 K/uL (130-430) 02/18/20 08:05 MPV 9.4 fl (7.4-10.4) 02/18/20 08:05 Neut % (Auto) 64.6 % (40-70) 02/18/20 08:05 Lymph % (Auto) 27.4 % (20.5-51.5) 02/18/20 08:05 [place] % (Auto) 5.5 % (1.7-9.3) 02/18/20 08:05 Eos % (Auto) 1.4 % (0-4) 02/18/20 08:05 Baso % (Auto) 1.1 % (0.0-2.0) 02/18/20 08:05 Neut # (Auto) 5.3 K/uL (1.8-7.7) 02/18/20 08:05 Lymph # (Auto) 2.3 K/uL (1.0-5.5) 02/18/20 08:05 [place] # (Auto) 0.5 K/uL (0.0-1.0) 02/18/20 08:05 Eos # (Auto) 0.1 K/uL (0.0-0.4) 02/18/20 08:05 Baso # (Auto) 0.1 K/uL (0.0-0.2) 02/18/20 08:05 POC Glucose 132 MG/DL (70 - 105) H 02/13/20 02:47 Hemoglobin A1c 6.9 % (4.8-5.6) H 02/13/20 10:35 Triglycerides 169 mg/dL (30-150) H 02/13/20 10:35 Cholesterol 206 mg/dL (<200) H 02/13/20 10:35 LDL Cholesterol 125 mg/dL (0-129) 02/13/20 10:35 HDL Cholesterol 53 mg/dL (>55) L 02/13/20 10:35 TSH 3.96 uIU/ml (0.358-3.740) H 02/15/20 13:30 Coronavirus (PCR) NOT DETECTED (NOT DETECTD) 02/13/20 18:40 - Physical Exam Vitals and I&O: Vital Signs Temp 97 F 02/18/20 06:02 Pulse 73 02/18/20 09:05 Resp 18 02/18/20 08:00 BP 125/47 02/18/20 09:05 Pulse Ox 92 02/18/20 06:02 Intake & Output 02/17/20 02/18/20 02/18/20 18:59 06:59 18:59 Intake Total 0 Balance 0 Intake: Oral 0 Other: # Voids 3 # Bowel Movements 0 Stool Characteristics Soft Brown Active Medications: Current Medications Acetaminophen (Tylenol) 650 mg PO Q4H PRN PRN Reason: Pain (Mild 1-3) Stop: 04/13/20 03:15 Acetaminophen (Tylenol Extra Strength) 1,000 mg PO Q6H PRN PRN Reason: Pain (Moderate 4-6) Stop: 04/13/20 03:17 Al Hydrox/Mg Hydrox/Simethicone (Maalox) 30 ml PO Q4HR PRN PRN Reason: GI DISTRESS Stop: 04/13/20 03:29 Atorvastatin Calcium (Lipitor) 10 mg PO DAILY [facility]; Protocol Stop: 04/14/20 08:59 Last Admin: 02/18/20 09:03 Dose: 10 mg Duloxetine HCl (Cymbalta) 60 mg PO DAILY [facility]; Protocol Stop: 10/19/20 09:59 Last Admin: 02/18/20 09:03 Dose: 60 mg Hydrochlorothiazide (Hctz) 12.5 mg PO DAILY [facility] Stop: 04/14/20 08:59 Last Admin: 02/18/20 09:04 Dose: Not Given Ibuprofen (Motrin) 400 mg PO Q4H PRN PRN Reason: Pain (Severe 7-10) Stop: 04/13/20 03:17 Lorazepam (Ativan) 0.5 mg PO Q4HR PRN; Protocol PRN Reason: Anxiety Stop: 03/14/20 03:29 Last Admin: 02/15/20 06:58 Dose: 0.5 mg Magnesium Hydroxide (Milk Of Magnesia) 30 ml PO HS PRN PRN Reason: Constipation Metoprolol Succinate (Toprol Xl) 50 mg PO DAILY [facility] Stop: 04/15/20 08:59 Last Admin: 02/18/20 09:05 Dose: Not Given Multivitamins/Vitamin C (Theragran) 1 tab PO DAILY [facility] Stop: 04/13/20 08:59 Last Admin: 02/18/20 09:03 Dose: 1 tab Quetiapine Fumarate (Seroquel) 25 mg PO BID [facility]; Protocol Stop: 04/18/20 16:59 Zolpidem Tartrate (Ambien) 5 mg PO HS PRN PRN Reason: Insomnia Stop: 04/13/20 03:29 General: weak HEENT: NC/AT, PERRLA, EOMI Neck: Supple Lungs: CTAB Cardiovascular: RRR, Normal S1, Normal S2 Abdomen: soft, non-tender Extremities: clear Neurological: no change - Procedures Procedures: Procedures Procedure Code Date APPLY FOREARM SPLINT 47502 11/07/15 GROUP PSYCHOTHERAPY 73855 11/20/15 GROUP PSYCHOTHERAPY GZHZZZZ 11/20/15 IMMOBILIZATION OF LEFT LOWER ARM USING SPLINT [id number] 11/07/15 OTHER GROUP THERAPY 94.44 11/20/14 REPOSITION LEFT RADIUS WITH INT FIX, OPEN APPROACH [id number] 11/16/15 TREAT FX RAD INTRA-ARTICUL 16938 11/16/15 Internal Medicine Assmt/Plan - Assessment Assessment: 1. DM, new diagnosis 2. HTN 3. Hypothyroidism - Plan Plan: will start glucophage once lab results are back d/w r.n. reviewed complete medical records Nutritional Asmnt/Malnutr-PDOC - Dietary Evaluation Malnutrition Findings (Please click <Entered> for more info): Nutritional Asmnt/Malnutrition Start: 02/15/20 11: 54 Text: Status: Complete Freq: Protocol: Document 02/15/20 12:02 ADIS (Rec: 02/15/20 12:14 ADIS [id number]) Nutritional Asmnt/Malnutrition Patient General Information Nutritional Screening Moderate Risk Diagnosis Psychosis Pertinent Medical Hx/Surgical Hx HTN, Hyperlipidemia Subjective Information Pt is a 75-year-old female admitted on 02/12 d/t grave disability and danger to self. Pt is eating an estimated 0- 75%% of meals Per Meal/ Nutrition Activity Record since admit date (x2 days), pt ate 75% meals on admit day and refused breakfast and lunch yesterday, eating 25% dinner. Dietary is currently providing an estimated 2020 kcals and 95 gm Pro. Visited pt in room, FOOD AND BEVERAGE LEAD stated the patient is refusing everything today, just having liquids. Got her a Glucerna shake in case she decides not to eat lunch. Pt did not want to talk further. Pt need some adjusting time, will F/U in 3- 5 days and continue to monitor PO intake and provide Glucerna as appropriate. Recommend adding CCHO to current diet d/t labs (02/12) A1c 6.9%, POC glucose 132. Anthropometrics HT: 58 WT: 203 LB (92.27 kg) ABW: 156 LB (70.80 kg) BMI: 30.87 (Obese, class I) GI/ Skin Integrity GI: WNL, Soft, Large, Non- tender BM: 02/12 x3 I/O: 980/Not Noted Skin: Wound and bruises, RT/LT hand bruise, LT Forearm skin tear Ari: 17 Diet Order: Cardiac Estimated Energy Needs: (Obese , ABW) 4933-3086 kcals (20-25 kcals/ kg) 60-70g Pro (0.8-1.0 g/kg) 2958-6514 ml (20-25 ml/kg) Current Diet Order/ Nutrition Support Cardiac Patient / S.O Can Pertinent Medications Maalox (PRN), Lipitor, Hydrochlorothiazide, MOM (PRN) , Theragran Pertinent Labs 02/12: Triglycerides 169, Cholesterol 206, HDL 53, A1c 6 .9%, POC glucose 132 Nutritional Hx/Data Height 1.73 m Height (Calculated Centimeters) 172.7 Current Weight (lbs) 92.079 kg Weight (Calculated Kilograms) 92.1 Weight (Calculated Grams) 01469.3 Likely Body Weight 140 LB (63.64 kg) % Likely Body Weight 145 Body Mass Index (BMI) 30.9 Weight Status Obese GI Symptoms Last BM 02/12 x3 Skin Integrity/Comment: Skin: Wound and bruises, RT/LT hand bruise, LT Forearm skin tear Ari: 17 Current %PO Fair (50-74%) Estimated Nutritional Goals BEE in Kcals: Adj wt of IBW Calories/Kcals/Kg 20-25 Kcals Calculated 2649-1029 Protein: Adj wt of IBW Protein g/k.8-1.0 Protein Calculated 60-70 Fluid: ml 8268-4610 ml (20-25 ml/kg) Nutritional Problem 2. Problem Problem Obese, class I Etiology r/t consistent energy overconsumption Signs/Symptoms: aeb BMI >30 (30.90). 1. Problem Problem Impaired nutrient utilization Etiology r/t endocrine dysfuction Signs/Symptoms: aeb labs (02/12) A1c 6.9%, POC glucose 132. Intervention/Recommendation Comments 1.Recommend adding CCHO to current diet Rx. 2.Provide Glucerna Hunger Smart as appropriate when PO < 50%. Expected Outcomes/Goals Expected Outcomes/Goals 1.PO intake to meet 75% of estimated nutritional needs. 2.Monitor PO intake, wt, nutrition related labs to trend WNL, and skin integrity to trend WNL. 3.F/U as moderate risk in 3-5 days, 02/17-02/19.
--- NOTE | 2020-02-18 22:26 | Progress Notes ---
DATE: 02/18/2020 Case was discussed with staff of the patient and reviewed records. Covering for Dr. England this morning because I did her admission. I saw her upon admission. The patient has been withdrawn, selectively mute, forgetful, confused, unable to make safe plan for self-care. She uses a wheelchair. She continues to be disorganized, uncooperative, needing redirection. She has been compliant with the medication with no side effects, no sedation, no nausea, and no extrapyramidal symptoms. She was started on Seroquel 12.5 mg twice a day, I will be increasing the dose to 25 mg twice a day. She has no side effects to the medication, no sedation, no nausea, and no extrapyramidal symptoms. She is already on also Cymbalta that was increased by Dr. England to 60 mg twice a day. We will continue to work with the patient in group therapy, milieu therapy, and adjust the medications as needed. JOB# [id number]
[2020-02-19] MEDS: Atorvastatin Calcium 10 MG TAB PO SCH ×2 (08:25→08:30)
[2020-02-19] MEDS: Multivitamin Tab PO SCH ×2 (08:25→08:30)
--- NOTE | 2020-02-19 18:23 | Internal Medicine Prog Note ---
Internal Medicine Subjective - Subjective Service Date: 02/19/20 (asleep) Patient seen and examined:: without staff Patient is:: awake Patient Complaints of:: congestion Per staff patient has:: no adverse event, no episodes of fall Internal Medicine Objective - Results Result Diagrams: 02/18/20 08:05 Recent Labs: Laboratory Last Values WBC 8.3 K/uL (4.8-10.8) 02/18/20 08:05 RBC 4.31 MIL/uL (4.2-6.2) 02/18/20 08:05 Hgb 12.9 g/dL (12.0-16.0) 02/18/20 08:05 Hct 37.6 % (36-48) 02/18/20 08:05 MCV 87 fL (79.0-98.0) 02/18/20 08:05 MCH 30 pg (27-31) 02/18/20 08:05 MCHC 34 % (32-36) 02/18/20 08:05 RDW 14.3 % (9.0-15.0) 02/18/20 08:05 Plt Count 202 K/uL (130-430) 02/18/20 08:05 MPV 9.4 fl (7.4-10.4) 02/18/20 08:05 Neut % (Auto) 64.6 % (40-70) 02/18/20 08:05 Lymph % (Auto) 27.4 % (20.5-51.5) 02/18/20 08:05 [place] % (Auto) 5.5 % (1.7-9.3) 02/18/20 08:05 Eos % (Auto) 1.4 % (0-4) 02/18/20 08:05 Baso % (Auto) 1.1 % (0.0-2.0) 02/18/20 08:05 Neut # (Auto) 5.3 K/uL (1.8-7.7) 02/18/20 08:05 Lymph # (Auto) 2.3 K/uL (1.0-5.5) 02/18/20 08:05 [place] # (Auto) 0.5 K/uL (0.0-1.0) 02/18/20 08:05 Eos # (Auto) 0.1 K/uL (0.0-0.4) 02/18/20 08:05 Baso # (Auto) 0.1 K/uL (0.0-0.2) 02/18/20 08:05 POC Glucose 132 MG/DL (70 - 105) H 02/13/20 02:47 Hemoglobin A1c 6.9 % (4.8-5.6) H 02/13/20 10:35 Triglycerides 169 mg/dL (30-150) H 02/13/20 10:35 Cholesterol 206 mg/dL (<200) H 02/13/20 10:35 LDL Cholesterol 125 mg/dL (0-129) 02/13/20 10:35 HDL Cholesterol 53 mg/dL (>55) L 02/13/20 10:35 TSH 3.96 uIU/ml (0.358-3.740) H 02/15/20 13:30 Coronavirus (PCR) NOT DETECTED (NOT DETECTD) 02/13/20 18:40 - Physical Exam Vitals and I&O: Vital Signs Temp 97.2 F 02/19/20 16:52 Pulse 101 02/19/20 16:52 Resp 18 02/19/20 16:52 BP 141/76 02/19/20 16:52 Pulse Ox 94 02/19/20 16:52 Intake & Output 02/18/20 02/19/20 02/19/20 18:59 06:59 18:59 Intake Total 400 240 Output Total 1 Balance 400 239 Intake: Oral 400 240 Output: Urine/Stool Mix 1 Other: # Voids 2 3 # Bowel Movements 0 0 Stool Characteristics Soft Soft Brown Brown Active Medications: Current Medications Acetaminophen (Tylenol) 650 mg PO Q4H PRN PRN Reason: Pain (Mild 1-3) Stop: 04/13/20 03:15 Acetaminophen (Tylenol Extra Strength) 1,000 mg PO Q6H PRN PRN Reason: Pain (Moderate 4-6) Stop: 04/13/20 03:17 Al Hydrox/Mg Hydrox/Simethicone (Maalox) 30 ml PO Q4HR PRN PRN Reason: GI DISTRESS Stop: 04/13/20 03:29 Atorvastatin Calcium (Lipitor) 10 mg PO DAILY [facility]; Protocol Stop: 04/14/20 08:59 Last Admin: 02/19/20 08:30 Dose: Not Given Duloxetine HCl (Cymbalta) 60 mg PO DAILY [facility]; Protocol Stop: 04/14/20 09:59 Last Admin: 02/19/20 08:35 Dose: Not Given Hydrochlorothiazide (Hctz) 12.5 mg PO DAILY [facility] Stop: 04/14/20 08:59 Last Admin: 02/19/20 08:30 Dose: Not Given Ibuprofen (Motrin) 400 mg PO Q4H PRN PRN Reason: Pain (Severe 7-10) Stop: 04/13/20 03:17 Lorazepam (Ativan) 0.5 mg PO Q4HR PRN; Protocol PRN Reason: Anxiety Stop: 03/14/20 03:29 Last Admin: 02/15/20 06:58 Dose: 0.5 mg Magnesium Hydroxide (Milk Of Magnesia) 30 ml PO HS PRN PRN Reason: Constipation Metoprolol Succinate (Toprol Xl) 50 mg PO DAILY [facility] Stop: 04/15/20 08:59 Last Admin: 02/19/20 08:30 Dose: Not Given Multivitamins/Vitamin C (Theragran) 1 tab PO DAILY [facility] Stop: 04/13/20 08:59 Last Admin: 02/19/20 08:30 Dose: Not Given Quetiapine Fumarate (Seroquel) 25 mg PO BID [facility]; Protocol Stop: 04/18/20 16:59 Last Admin: 02/19/20 16:34 Dose: Not Given Zolpidem Tartrate (Ambien) 5 mg PO HS PRN PRN Reason: Insomnia Stop: 04/13/20 03:29 General: weak HEENT: NC/AT, PERRLA, EOMI Neck: Supple Lungs: CTAB Cardiovascular: RRR, Normal S1, Normal S2 Abdomen: soft, non-tender Extremities: clear Neurological: no change - Procedures Procedures: Procedures Procedure Code Date APPLY FOREARM SPLINT 30138 11/07/15 GROUP PSYCHOTHERAPY 42966 11/20/15 GROUP PSYCHOTHERAPY [id number] 11/20/15 IMMOBILIZATION OF LEFT LOWER ARM USING SPLINT [id number] 11/07/15 OTHER GROUP THERAPY 94.44 11/20/14 REPOSITION LEFT RADIUS WITH INT FIX, OPEN APPROACH [id number] 11/16/15 TREAT FX RAD INTRA-ARTICUL 32871 11/16/15 Internal Medicine Assmt/Plan - Assessment Assessment: 1. DM, new diagnosis 2. HTN 3. Hypothyroidism - Plan Plan: discussed with I.T. and lab pack chemist about issues with labs repeat cmp stat d/w r.n. reviewed complete medical records Nutritional Asmnt/Malnutr-PDOC - Dietary Evaluation Malnutrition Findings (Please click <Entered> for more info): Nutritional Asmnt/Malnutrition Start: 02/15/20 11: 54 Text: Status: Complete Freq: Protocol: Document 02/15/20 12:02 ADIS (Rec: 02/15/20 12:14 ADIS [email or web address] [id number]) Nutritional Asmnt/Malnutrition Patient General Information Nutritional Screening Moderate Risk Diagnosis Psychosis Pertinent Medical Hx/Surgical Hx HTN, Hyperlipidemia Subjective Information Pt is a 75-year-old female admitted on 02/12 d/t grave disability and danger to self. Pt is eating an estimated 0- 75%% of meals Per Meal/ Nutrition Activity Record since admit date (x2 days), pt ate 75% meals on admit day and refused breakfast and lunch yesterday, eating 25% dinner. Dietary is currently providing an estimated 2020 kcals and 95 gm Pro. Visited pt in room, [employer]IE[employer] stated the patient is refusing everything today, just having liquids. Got her a Glucerna shake in case she decides not to eat lunch. Pt did not want to talk further. Pt need some adjusting time, will F/U in 3- 5 days and continue to monitor PO intake and provide Glucerna as appropriate. Recommend adding CCHO to current diet d/t labs (02/12) A1c 6.9%, POC glucose 132. Anthropometrics HT: 58 WT: 203 LB (92.27 kg) ABW: 156 LB (70.80 kg) BMI: 30.87 (Obese, class I) GI/ Skin Integrity GI: WNL, Soft, Large, Non- tender BM: 02/12 x3 I/O: 980/Not Noted Skin: Wound and bruises, RT/LT hand bruise, LT Forearm skin tear Ari: 17 Diet Order: Cardiac Estimated Energy Needs: (Obese , ABW) 4844-7559 kcals (20-25 kcals/ kg) 60-70g Pro (0.8-1.0 g/kg) 4938-4679 ml (20-25 ml/kg) Current Diet Order/ Nutrition Support Cardiac Patient / S.O Can Pertinent Medications Maalox (PRN), Lipitor, Hydrochlorothiazide, MOM (PRN) , Theragran Pertinent Labs 02/12: Triglycerides 169, Cholesterol 206, HDL 53, A1c 6 .9%, POC glucose 132 Nutritional Hx/Data Height 1.73 m Height (Calculated Centimeters) 172.7 Current Weight (lbs) 92.079 kg Weight (Calculated Kilograms) 92.1 Weight (Calculated Grams) 50883.3 [place] Body Weight 140 LB (63.64 kg) % [place] Body Weight 145 Body Mass Index (BMI) 30.9 Weight Status Obese GI Symptoms Last BM 02/12 x3 Skin Integrity/Comment: Skin: Wound and bruises, RT/LT hand bruise, LT Forearm skin tear Ari: 17 Current %PO Fair (50-74%) Estimated Nutritional Goals BEE in Kcals: Adj wt of IBW Calories/Kcals/Kg 20-25 Kcals Calculated 1921-7247 Protein: Adj wt of IBW Protein g/k.8-1.0 Protein Calculated 60-70 Fluid: ml 7036-9300 ml (20-25 ml/kg) Nutritional Problem 2. Problem Problem Obese, class I Etiology r/t consistent energy overconsumption Signs/Symptoms: aeb BMI >30 (30.90). 1. Problem Problem Impaired nutrient utilization Etiology r/t endocrine dysfuction Signs/Symptoms: aeb labs (02/12) A1c 6.9%, POC glucose 132. Intervention/Recommendation Comments 1.Recommend adding CCHO to current diet Rx. 2.Provide Glucerna Hunger Smart as appropriate when PO < 50%. Expected Outcomes/Goals Expected Outcomes/Goals 1.PO intake to meet 75% of estimated nutritional needs. 2.Monitor PO intake, wt, nutrition related labs to trend WNL, and skin integrity to trend WNL. 3.F/U as moderate risk in 3-5 days, 02/17-02/19.
--- NOTE | 2020-02-19 19:44 | Progress Notes ---
DATE: 02/19/2020 SUBJECTIVE: Case was discussed with staff of the patient, reviewed records. The patient continues to isolate herself, selectively mute, continues to be unable to make safe plan for self-care. Continues to be withdrawn and confused, unable to make safe plan for self-care. She is compliant with the medication with no side effects, no sedation, no nausea, no extrapyramidal symptoms. She tolerated the increase in Seroquel to 25 mg twice a day. We will continue outpatient group therapy, milieu therapy, and adjust medication as needed. JOB# [id number]
[2020-02-20] MEDS: Atorvastatin Calcium 10 MG TAB PO SCH (08:48)
[2020-02-20] MEDS: Multivitamin Tab PO SCH (08:50)
[2020-02-20 13:06] LABS: BILIRUBIN,TOTAL 0.7 mg/dL (0.0-1.0); CREATININE - SERUM 1.07 mg/dL (0.70-1.30)
--- NOTE | 2020-02-20 13:50 | Internal Medicine Prog Note ---
Internal Medicine Subjective - Subjective Service Date: 02/20/20 Patient seen and examined:: without staff Patient is:: awake Patient Complaints of:: congestion Per staff patient has:: no adverse event, no episodes of fall Internal Medicine Objective - Results Result Diagrams: 02/18/20 08:05 02/20/20 09:55 Recent Labs: Laboratory Last Values WBC 8.3 K/uL (4.8-10.8) 02/18/20 08:05 RBC 4.31 MIL/uL (4.2-6.2) 02/18/20 08:05 Hgb 12.9 g/dL (12.0-16.0) 02/18/20 08:05 Hct 37.6 % (36-48) 02/18/20 08:05 MCV 87 fL (79.0-98.0) 02/18/20 08:05 MCH 30 pg (27-31) 02/18/20 08:05 MCHC 34 % (32-36) 02/18/20 08:05 RDW 14.3 % (9.0-15.0) 02/18/20 08:05 Plt Count 202 K/uL (130-430) 02/18/20 08:05 MPV 9.4 fl (7.4-10.4) 02/18/20 08:05 Neut % (Auto) 64.6 % (40-70) 02/18/20 08:05 Lymph % (Auto) 27.4 % (20.5-51.5) 02/18/20 08:05 [place] % (Auto) 5.5 % (1.7-9.3) 02/18/20 08:05 Eos % (Auto) 1.4 % (0-4) 02/18/20 08:05 Baso % (Auto) 1.1 % (0.0-2.0) 02/18/20 08:05 Neut # (Auto) 5.3 K/uL (1.8-7.7) 02/18/20 08:05 Lymph # (Auto) 2.3 K/uL (1.0-5.5) 02/18/20 08:05 [place] # (Auto) 0.5 K/uL (0.0-1.0) 02/18/20 08:05 Eos # (Auto) 0.1 K/uL (0.0-0.4) 02/18/20 08:05 Baso # (Auto) 0.1 K/uL (0.0-0.2) 02/18/20 08:05 Sodium 134 mmol/L (136-145) L 02/20/20 09:55 Potassium 3.0 mmol/L (3.5-5.1) L 02/20/20 09:55 Chloride 95 mmol/L (98-107) L 02/20/20 09:55 Carbon Dioxide 26 mmol/L (23-29) 02/20/20 09:55 Anion Gap 16 (5-15) H 02/20/20 09:55 BUN 26 mg/dL (8-21) H 02/20/20 09:55 Creatinine 1.07 mg/dL (0.70-1.30) 02/20/20 09:55 Glucose 125 mg/dL (70-99) H 02/20/20 09:55 POC Glucose 132 MG/DL (70 - 105) H 02/13/20 02:47 Hemoglobin A1c 6.9 % (4.8-5.6) H 02/13/20 10:35 Calcium 10.0 mg/dL (8.4-10.2) 02/20/20 09:55 Total Bilirubin 0.7 mg/dL (0.0-1.0) 02/20/20 09:55 AST 30 U/L (10-37) 02/20/20 09:55 ALT 28 U/L (12-78) 02/20/20 09:55 Alkaline Phosphatase 99 U/L (46-116) 02/20/20 09:55 Total Protein 7.0 g/dL (6.4-8.3) 02/20/20 09:55 Albumin 3.4 g/dL (3.4-5.0) 02/20/20 09:55 Triglycerides 169 mg/dL (30-150) H 02/13/20 10:35 Cholesterol 206 mg/dL (<200) H 02/13/20 10:35 LDL Cholesterol 125 mg/dL (0-129) 02/13/20 10:35 HDL Cholesterol 53 mg/dL (>55) L 02/13/20 10:35 TSH 3.96 uIU/ml (0.358-3.740) H 02/15/20 13:30 Coronavirus (PCR) NOT DETECTED (NOT DETECTD) 02/13/20 18:40 - Physical Exam Vitals and I&O: Vital Signs Temp 0 F 02/20/20 05:40 Pulse 107 02/20/20 08:50 Resp 20 02/20/20 08:00 BP 143/79 02/20/20 08:50 Pulse Ox 94 02/19/20 16:52 Intake & Output 02/19/20 02/20/20 02/20/20 18:59 06:59 18:59 Intake Total 120 Output Total 1 Balance 119 Intake: Oral 120 Output: Urine/Stool Mix 1 Other: # Voids 3 # Bowel Movements 0 Stool Characteristics Soft Soft Brown Brown Active Medications: Current Medications Acetaminophen (Tylenol) 650 mg PO Q4H PRN PRN Reason: Pain (Mild 1-3) Stop: 04/13/20 03:15 Acetaminophen (Tylenol Extra Strength) 1,000 mg PO Q6H PRN PRN Reason: Pain (Moderate 4-6) Stop: 04/13/20 03:17 Al Hydrox/Mg Hydrox/Simethicone (Maalox) 30 ml PO Q4HR PRN PRN Reason: GI DISTRESS Stop: 04/13/20 03:29 Atorvastatin Calcium (Lipitor) 10 mg PO DAILY [facility]; Protocol Stop: 04/14/20 08:59 Last Admin: 02/20/20 08:48 Dose: 10 mg Duloxetine HCl (Cymbalta) 60 mg PO DAILY [facility]; Protocol Stop: 04/14/20 09:59 Last Admin: 02/20/20 08:48 Dose: 60 mg Hydrochlorothiazide (Hctz) 12.5 mg PO DAILY [facility] Stop: 04/14/20 08:59 Last Admin: 02/20/20 08:48 Dose: 12.5 mg Ibuprofen (Motrin) 400 mg PO Q4H PRN PRN Reason: Pain (Severe 7-10) Stop: 04/13/20 03:17 Lorazepam (Ativan) 0.5 mg PO Q4HR PRN; Protocol PRN Reason: Anxiety Stop: 03/14/20 03:29 Last Admin: 02/15/20 06:58 Dose: 0.5 mg Magnesium Hydroxide (Milk Of Magnesia) 30 ml PO HS PRN PRN Reason: Constipation Metoprolol Succinate (Toprol Xl) 50 mg PO DAILY [facility] Stop: 04/15/20 08:59 Last Admin: 02/20/20 08:50 Dose: 50 mg Multivitamins/Vitamin C (Theragran) 1 tab PO DAILY [facility] Stop: 04/13/20 08:59 Last Admin: 02/20/20 08:50 Dose: 1 tab Quetiapine Fumarate (Seroquel) 25 mg PO BID [facility]; Protocol Stop: 04/18/20 16:59 Last Admin: 02/20/20 08:50 Dose: 25 mg Zolpidem Tartrate (Ambien) 5 mg PO HS PRN PRN Reason: Insomnia Stop: 04/13/20 03:29 General: weak HEENT: NC/AT, PERRLA, EOMI Neck: Supple Lungs: CTAB Cardiovascular: RRR, Normal S1, Normal S2 Abdomen: soft, non-tender Extremities: clear Neurological: no change - Procedures Procedures: Procedures Procedure Code Date APPLY FOREARM SPLINT 36069 11/07/15 GROUP PSYCHOTHERAPY 06361 11/20/15 GROUP PSYCHOTHERAPY GZHZZZZ 11/20/15 IMMOBILIZATION OF LEFT LOWER ARM USING SPLINT [id number] 11/07/15 OTHER GROUP THERAPY 94.44 11/20/14 REPOSITION LEFT RADIUS WITH INT FIX, OPEN APPROACH [id number] 11/16/15 TREAT FX RAD INTRA-ARTICUL 28878 11/16/15 Internal Medicine Assmt/Plan - Assessment Assessment: 1. DM, new diagnosis 2. HTN 3. Hypothyroidism 4. Hypokalemia - Plan Plan: stop HCTZ start glucophage repeat cmp stat d/w r.n. reviewed complete medical records Nutritional Asmnt/Malnutr-PDOC - Dietary Evaluation Malnutrition Findings (Please click <Entered> for more info): Nutritional Asmnt/Malnutrition Start: 02/15/20 11: 54 Text: Status: Complete Freq: Protocol: Document 02/15/20 12:02 ADIS (Rec: 02/15/20 12:14 ADIS [email or web address] [id number]) Nutritional Asmnt/Malnutrition Patient General Information Nutritional Screening Moderate Risk Diagnosis Psychosis Pertinent Medical Hx/Surgical Hx HTN, Hyperlipidemia Subjective Information Pt is a 75-year-old female admitted on 02/12 d/t grave disability and danger to self. Pt is eating an estimated 0- 75%% of meals Per Meal/ Nutrition Activity Record since admit date (x2 days), pt ate 75% meals on admit day and refused breakfast and lunch yesterday, eating 25% dinner. Dietary is currently providing an estimated 2020 kcals and 95 gm Pro. Visited pt in room, CLIFF stated the patient is refusing everything today, just having liquids. Got her a Glucerna shake in case she decides not to eat lunch. Pt did not want to talk further. Pt need some adjusting time, will F/U in 3- 5 days and continue to monitor PO intake and provide Glucerna as appropriate. Recommend adding CCHO to current diet d/t labs (02/12) A1c 6.9%, POC glucose 132. Anthropometrics HT: 58 WT: 203 LB (92.27 kg) ABW: 156 LB (70.80 kg) BMI: 30.87 (Obese, class I) GI/ Skin Integrity GI: WNL, Soft, Large, Non- tender BM: 02/12 x3 I/O: 980/Not Noted Skin: Wound and bruises, RT/LT hand bruise, LT Forearm skin tear Ari: 17 Diet Order: Cardiac Estimated Energy Needs: (Obese , ABW) 4917-9352 kcals (20-25 kcals/ kg) 60-70g Pro (0.8-1.0 g/kg) 5276-5726 ml (20-25 ml/kg) Current Diet Order/ Nutrition Support Cardiac Patient / S.O Can Pertinent Medications Maalox (PRN), Lipitor, Hydrochlorothiazide, MOM (PRN) , Theragran Pertinent Labs 02/12: Triglycerides 169, Cholesterol 206, HDL 53, A1c 6 .9%, POC glucose 132 Nutritional Hx/Data Height 1.73 m Height (Calculated Centimeters) 172.7 Current Weight (lbs) 92.079 kg Weight (Calculated Kilograms) 92.1 Weight (Calculated Grams) 58827.3 [place] Body Weight 140 LB (63.64 kg) % [place] Body Weight 145 Body Mass Index (BMI) 30.9 Weight Status Obese GI Symptoms Last BM 02/12 x3 Skin Integrity/Comment: Skin: Wound and bruises, RT/LT hand bruise, LT Forearm skin tear Ari: 17 Current %PO Fair (50-74%) Estimated Nutritional Goals BEE in Kcals: Adj wt of IBW Calories/Kcals/Kg 20-25 Kcals Calculated 7461-8159 Protein: Adj wt of IBW Protein g/k.8-1.0 Protein Calculated 60-70 Fluid: ml 8740-0742 ml (20-25 ml/kg) Nutritional Problem 2. Problem Problem Obese, class I Etiology r/t consistent energy overconsumption Signs/Symptoms: aeb BMI >30 (30.90). 1. Problem Problem Impaired nutrient utilization Etiology r/t endocrine dysfuction Signs/Symptoms: aeb labs (02/12) A1c 6.9%, POC glucose 132. Intervention/Recommendation Comments 1.Recommend adding CCHO to current diet Rx. 2.Provide Glucerna Hunger Smart as appropriate when PO < 50%. Expected Outcomes/Goals Expected Outcomes/Goals 1.PO intake to meet 75% of estimated nutritional needs. 2.Monitor PO intake, wt, nutrition related labs to trend WNL, and skin integrity to trend WNL. 3.F/U as moderate risk in 3-5 days, 02/17-02/19.
--- NOTE | 2020-02-20 20:51 | Progress Notes ---
DATE: 02/20/2020 SUBJECTIVE: Chart reviewed and the patient interviewed. Also discussed the patient's condition with the staff and reviewed records and labs. The patient is easily irritable and easily agitated. The patient also wants to be left alone and she is refusing to talk and also refusing to take medications. The patient also during interview has poor eye contact and angry and in irritable mood. She also is refusing to discuss any issues in regard to her condition or medications or medications or to express her feelings. ASSESSMENT: The patient is still paranoid and depressed. TREATMENT PLAN: Encouraged the patient to take medications, which is Cymbalta and Seroquel. Also, encouraged the patient to interact more and express herself more. [facility]# [id number]
[2020-02-21] MEDS: Atorvastatin Calcium 10 MG TAB PO SCH (08:20)
[2020-02-21] MEDS: Multivitamin Tab PO SCH (08:20)
--- NOTE | 2020-02-21 13:38 | Internal Medicine Prog Note ---
Internal Medicine Subjective - Subjective Service Date: 02/21/20 Patient seen and examined:: without staff Patient is:: awake Patient Complaints of:: congestion Per staff patient has:: no adverse event, no episodes of fall Internal Medicine Objective - Results Result Diagrams: 02/18/20 08:05 02/20/20 09:55 Recent Labs: Laboratory Last Values WBC 8.3 K/uL (4.8-10.8) 02/18/20 08:05 RBC 4.31 MIL/uL (4.2-6.2) 02/18/20 08:05 Hgb 12.9 g/dL (12.0-16.0) 02/18/20 08:05 Hct 37.6 % (36-48) 02/18/20 08:05 MCV 87 fL (79.0-98.0) 02/18/20 08:05 MCH 30 pg (27-31) 02/18/20 08:05 MCHC 34 % (32-36) 02/18/20 08:05 RDW 14.3 % (9.0-15.0) 02/18/20 08:05 Plt Count 202 K/uL (130-430) 02/18/20 08:05 MPV 9.4 fl (7.4-10.4) 02/18/20 08:05 Neut % (Auto) 64.6 % (40-70) 02/18/20 08:05 Lymph % (Auto) 27.4 % (20.5-51.5) 02/18/20 08:05 [place] % (Auto) 5.5 % (1.7-9.3) 02/18/20 08:05 Eos % (Auto) 1.4 % (0-4) 02/18/20 08:05 Baso % (Auto) 1.1 % (0.0-2.0) 02/18/20 08:05 Neut # (Auto) 5.3 K/uL (1.8-7.7) 02/18/20 08:05 Lymph # (Auto) 2.3 K/uL (1.0-5.5) 02/18/20 08:05 [place] # (Auto) 0.5 K/uL (0.0-1.0) 02/18/20 08:05 Eos # (Auto) 0.1 K/uL (0.0-0.4) 02/18/20 08:05 Baso # (Auto) 0.1 K/uL (0.0-0.2) 02/18/20 08:05 Sodium 134 mmol/L (136-145) L 02/20/20 09:55 Potassium 3.0 mmol/L (3.5-5.1) L 02/20/20 09:55 Chloride 95 mmol/L (98-107) L 02/20/20 09:55 Carbon Dioxide 26 mmol/L (23-29) 02/20/20 09:55 Anion Gap 16 (5-15) H 02/20/20 09:55 BUN 26 mg/dL (8-21) H 02/20/20 09:55 Creatinine 1.07 mg/dL (0.70-1.30) 02/20/20 09:55 Glucose 125 mg/dL (70-99) H 02/20/20 09:55 POC Glucose 132 MG/DL (70 - 105) H 02/13/20 02:47 Hemoglobin A1c 6.9 % (4.8-5.6) H 02/13/20 10:35 Calcium 10.0 mg/dL (8.4-10.2) 02/20/20 09:55 Total Bilirubin 0.7 mg/dL (0.0-1.0) 02/20/20 09:55 AST 30 U/L (10-37) 02/20/20 09:55 ALT 28 U/L (12-78) 02/20/20 09:55 Alkaline Phosphatase 99 U/L (46-116) 02/20/20 09:55 Total Protein 7.0 g/dL (6.4-8.3) 02/20/20 09:55 Albumin 3.4 g/dL (3.4-5.0) 02/20/20 09:55 Triglycerides 169 mg/dL (30-150) H 02/13/20 10:35 Cholesterol 206 mg/dL (<200) H 02/13/20 10:35 LDL Cholesterol 125 mg/dL (0-129) 02/13/20 10:35 HDL Cholesterol 53 mg/dL (>55) L 02/13/20 10:35 TSH 3.96 uIU/ml (0.358-3.740) H 02/15/20 13:30 Coronavirus (PCR) NOT DETECTED (NOT DETECTD) 02/13/20 18:40 - Physical Exam Vitals and I&O: Vital Signs Temp 98.1 F 02/20/20 20:00 Pulse 88 02/21/20 08:21 Resp 20 02/21/20 08:00 BP 123/61 02/21/20 08:21 Pulse Ox 96 02/20/20 20:00 Intake & Output 02/20/20 02/21/20 02/21/20 18:59 06:59 18:59 Intake Total 640 120 Balance 640 120 Intake: Oral 640 120 Other: # Voids 2 3 # Bowel Movements 1 Stool Characteristics Soft Brown Active Medications: Current Medications Acetaminophen (Tylenol) 650 mg PO Q4H PRN PRN Reason: Pain (Mild 1-3) Stop: 04/13/20 03:15 Acetaminophen (Tylenol Extra Strength) 1,000 mg PO Q6H PRN PRN Reason: Pain (Moderate 4-6) Stop: 04/13/20 03:17 Al Hydrox/Mg Hydrox/Simethicone (Maalox) 30 ml PO Q4HR PRN PRN Reason: GI DISTRESS Stop: 04/13/20 03:29 Atorvastatin Calcium (Lipitor) 10 mg PO DAILY [facility]; Protocol Stop: 04/14/20 08:59 Last Admin: 02/21/20 08:20 Dose: 10 mg Duloxetine HCl (Cymbalta) 60 mg PO DAILY [facility]; Protocol Stop: 04/14/20 09:59 Last Admin: 02/21/20 08:20 Dose: 60 mg Ibuprofen (Motrin) 400 mg PO Q4H PRN PRN Reason: Pain (Severe 7-10) Stop: 04/13/20 03:17 Lorazepam (Ativan) 0.5 mg PO Q4HR PRN; Protocol PRN Reason: Anxiety Stop: 03/14/20 03:29 Last Admin: 02/15/20 06:58 Dose: 0.5 mg Magnesium Hydroxide (Milk Of Magnesia) 30 ml PO HS PRN PRN Reason: Constipation Metformin HCl (Glucophage) 500 mg PO DAILY [facility] Stop: 04/20/20 13:59 Last Admin: 02/21/20 08:25 Dose: Not Given Metoprolol Succinate (Toprol Xl) 50 mg PO DAILY [facility] Stop: 04/15/20 08:59 Last Admin: 02/21/20 08:21 Dose: 50 mg Multivitamins/Vitamin C (Theragran) 1 tab PO DAILY [facility] Stop: 04/13/20 08:59 Last Admin: 02/21/20 08:20 Dose: 1 tab Quetiapine Fumarate (Seroquel) 25 mg PO BID [facility]; Protocol Stop: 04/18/20 16:59 Last Admin: 02/21/20 08:20 Dose: 25 mg Zolpidem Tartrate (Ambien) 5 mg PO HS PRN PRN Reason: Insomnia Stop: 04/13/20 03:29 General: weak HEENT: NC/AT, PERRLA, EOMI Neck: Supple Lungs: CTAB Cardiovascular: RRR, Normal S1, Normal S2 Abdomen: soft, non-tender Extremities: clear Neurological: no change - Procedures Procedures: Procedures Procedure Code Date APPLY FOREARM SPLINT 90844 11/07/15 GROUP PSYCHOTHERAPY 43683 11/20/15 GROUP PSYCHOTHERAPY [id number] 11/20/15 IMMOBILIZATION OF LEFT LOWER ARM USING SPLINT [id number] 11/07/15 OTHER GROUP THERAPY 94.44 11/20/14 REPOSITION LEFT RADIUS WITH INT FIX, OPEN APPROACH [id number] 11/16/15 TREAT FX RAD INTRA-ARTICUL 46902 11/16/15 Internal Medicine Assmt/Plan - Assessment Assessment: 1. DM, new diagnosis 2. HTN 3. Hypothyroidism 4. Hypokalemia - Plan Plan: continue glucophage repeat cmp stat d/w r.n. reviewed complete medical records Nutritional Asmnt/Malnutr-PDOC - Dietary Evaluation Malnutrition Findings (Please click <Entered> for more info): Nutritional Asmnt/Malnutrition Start: 02/15/20 11: 54 Text: Status: Complete Freq: Protocol: Document 02/15/20 12:02 ADIS (Rec: 02/15/20 12:14 ADIS [id number]) Nutritional Asmnt/Malnutrition Patient General Information Nutritional Screening Moderate Risk Diagnosis Psychosis Pertinent Medical Hx/Surgical Hx HTN, Hyperlipidemia Subjective Information Pt is a 75-year-old female admitted on 02/12 d/t grave disability and danger to self. Pt is eating an estimated 0- 75%% of meals Per Meal/ Nutrition Activity Record since admit date (x2 days), pt ate 75% meals on admit day and refused breakfast and lunch yesterday, eating 25% dinner. Dietary is currently providing an estimated 2020 kcals and 95 gm Pro. Visited pt in room, CLIFF stated the patient is refusing everything today, just having liquids. Got her a Glucerna shake in case she decides not to eat lunch. Pt did not want to talk further. Pt need some adjusting time, will F/U in 3- 5 days and continue to monitor PO intake and provide Glucerna as appropriate. Recommend adding CCHO to current diet d/t labs (02/12) A1c 6.9%, POC glucose 132. Anthropometrics HT: 58 WT: 203 LB (92.27 kg) ABW: 156 LB (70.80 kg) BMI: 30.87 (Obese, class I) GI/ Skin Integrity GI: WNL, Soft, Large, Non- tender BM: 02/12 x3 I/O: 980/Not Noted Skin: Wound and bruises, RT/LT hand bruise, LT Forearm skin tear Ari: 17 Diet Order: Cardiac Estimated Energy Needs: (Obese , ABW) 0357-0746 kcals (20-25 kcals/ kg) 60-70g Pro (0.8-1.0 g/kg) 5343-0434 ml (20-25 ml/kg) Current Diet Order/ Nutrition Support Cardiac Patient / S.O Can Pertinent Medications Maalox (PRN), Lipitor, Hydrochlorothiazide, MOM (PRN) , Theragran Pertinent Labs 02/12: Triglycerides 169, Cholesterol 206, HDL 53, A1c 6 .9%, POC glucose 132 Nutritional Hx/Data Height 1.73 m Height (Calculated Centimeters) 172.7 Current Weight (lbs) 92.079 kg Weight (Calculated Kilograms) 92.1 Weight (Calculated Grams) 14871.3 [place] Body Weight 140 LB (63.64 kg) % [place] Body Weight 145 Body Mass Index (BMI) 30.9 Weight Status Obese GI Symptoms Last BM 02/12 x3 Skin Integrity/Comment: Skin: Wound and bruises, RT/LT hand bruise, LT Forearm skin tear Ari: 17 Current %PO Fair (50-74%) Estimated Nutritional Goals BEE in Kcals: Adj wt of IBW Calories/Kcals/Kg 20-25 Kcals Calculated 3720-4395 Protein: Adj wt of IBW Protein g/k.8-1.0 Protein Calculated 60-70 Fluid: ml 1252-7616 ml (20-25 ml/kg) Nutritional Problem 2. Problem Problem Obese, class I Etiology r/t consistent energy overconsumption Signs/Symptoms: aeb BMI >30 (30.90). 1. Problem Problem Impaired nutrient utilization Etiology r/t endocrine dysfuction Signs/Symptoms: aeb labs (02/12) A1c 6.9%, POC glucose 132. Intervention/Recommendation Comments 1.Recommend adding CCHO to current diet Rx. 2.Provide Glucerna Hunger Smart as appropriate when PO < 50%. Expected Outcomes/Goals Expected Outcomes/Goals 1.PO intake to meet 75% of estimated nutritional needs. 2.Monitor PO intake, wt, nutrition related labs to trend WNL, and skin integrity to trend WNL. 3.F/U as moderate risk in 3-5 days, 02/17-02/19.
--- NOTE | 2020-02-21 16:15 | Progress Notes ---
DATE: 02/21/2020 PSYCHIATRIC PROGRESS NOTE SUBJECTIVE: Chart reviewed and the patient interviewed. Also discussed the patient's condition with the staff and reviewed records and labs. The patient remains in a depressed mood and she is selectively mute and today, the patient refused to talk to me at all and kept her eyes closed without talking and without even responding with any sign. She also refused to have breakfast or to drink. She is still staying in her bed all the time and not talking to anybody and not interacting. She also still has refused to take any medications. ASSESSMENT: The patient still seems very depressed and is still psychotic. TREATMENT PLAN: Continue to monitor behavior and condition closely. Also, planning to discuss with the patient's further information in regard to her condition and if she had similar episodes before and we will continue to follow up closely. Also, we will monitor the patient's vital signs for any possibility of dehydration since she is not eating or drinking. [facility]# [id number]
[2020-02-22] MEDS: Atorvastatin Calcium 10 MG TAB PO SCH (08:27)
[2020-02-22] MEDS: Multivitamin Tab PO SCH (08:27)
--- NOTE | 2020-02-22 18:22 | Progress Notes ---
DATE: 02/22/2020 Case was discussed with staff of the patient, reviewed records. The patient continues to isolate herself, selectively mute, continues to keep her eyes closed, not responding in anyway possible, refused to eat or drink staying in her bed most of the time. Continues to be depressed, psychotic. So, I talked to the nurse, to see if Dr. Dwyer will evaluate. The patient states she needs to be transferred to a medical facility because she could be dehydrated as she is refusing to eat, not taking nothing. Not taking medication. Also, may have to be reisedand will continue outpatient group therapy, milieu therapy, and adjust the medication as needed. JOB# [id number] FERNANDO
[2020-02-23] MEDS: Atorvastatin Calcium 10 MG TAB PO SCH (09:01)
[2020-02-23] MEDS: Multivitamin Tab PO SCH (09:01)
--- NOTE | 2020-02-23 13:00 | Progress Notes ---
DATE: 02/23/2020 SUBJECTIVE: A 75-year-old female, currently in the hospital, apparently agitated with the , not eating, not sleeping, here in the hospital due to serious back problems, history of depression and anxiety. On [id number], the patient noted to be irritable, unfortunately not wanting to initially engage with me, mostly withdrawn, keeps to self, mostly isolative, selectively mute. I had a hard time getting any information out of her. Concerns about her p.o. intake, possible transfer to a medical facility if there are any concerns about dehydration or lack of nutrition. Discussed with staff, still depressed, concerns for ongoing psychotic symptoms. Medications were reviewed. Labs reviewed. Vitals were reviewed. ASSESSMENT: A 75-year-old female with ongoing symptoms, safety concerns as noted, remains unstable. PLAN: We will follow alongside primary psychiatric team. I am covering for Dr. England over the weekend. Medications were noted. We will continue current dosing for now. JOB# [id number]
[2020-02-24] MEDS: Atorvastatin Calcium 10 MG TAB PO SCH (08:21)
[2020-02-24] MEDS: Multivitamin Tab PO SCH (08:22)
--- NOTE | 2020-02-24 09:04 | Progress Notes ---
DATE: 02/24/2020 SUBJECTIVE: A 75-year-old female, currently in the hospital, apparently agitated with the , not eating, not sleeping, in the hospital due to serious back problems. I go to try to see her today. Unfortunately, she does not engage with me. I tried to wake her up, but she opens her eyes, stares and then closes them. Difficult [id number], per staff, responding to name, AO to self only, appears calm, quiet, but withdrawn, confused appearing. ASSESSMENT: The patient impulsive, unpredictable, hard to fully assess, still appearing withdrawn, keeps to self. Medications were reviewed. Labs reviewed. Vitals reviewed. PLAN: We will continue inpatient monitoring. Continue dosing of Cymbalta, Seroquel, ongoing symptoms, safety concerns. JOB# [id number]
[2020-02-25] MEDS: Atorvastatin Calcium 10 MG TAB PO SCH (08:49)
[2020-02-25] MEDS: Multivitamin Tab PO SCH (08:50)
--- NOTE | 2020-02-25 14:34 | Internal Medicine Prog Note ---
Internal Medicine Subjective - Subjective Service Date: 02/25/20 Patient seen and examined:: without staff Patient is:: awake Patient Complaints of:: congestion Per staff patient has:: no adverse event, no episodes of fall Internal Medicine Objective - Results Result Diagrams: 02/18/20 08:05 02/20/20 09:55 Recent Labs: Laboratory Last Values WBC 8.3 K/uL (4.8-10.8) 02/18/20 08:05 RBC 4.31 MIL/uL (4.2-6.2) 02/18/20 08:05 Hgb 12.9 g/dL (12.0-16.0) 02/18/20 08:05 Hct 37.6 % (36-48) 02/18/20 08:05 MCV 87 fL (79.0-98.0) 02/18/20 08:05 MCH 30 pg (27-31) 02/18/20 08:05 MCHC 34 % (32-36) 02/18/20 08:05 RDW 14.3 % (9.0-15.0) 02/18/20 08:05 Plt Count 202 K/uL (130-430) 02/18/20 08:05 MPV 9.4 fl (7.4-10.4) 02/18/20 08:05 Neut % (Auto) 64.6 % (40-70) 02/18/20 08:05 Lymph % (Auto) 27.4 % (20.5-51.5) 02/18/20 08:05 [place] % (Auto) 5.5 % (1.7-9.3) 02/18/20 08:05 Eos % (Auto) 1.4 % (0-4) 02/18/20 08:05 Baso % (Auto) 1.1 % (0.0-2.0) 02/18/20 08:05 Neut # (Auto) 5.3 K/uL (1.8-7.7) 02/18/20 08:05 Lymph # (Auto) 2.3 K/uL (1.0-5.5) 02/18/20 08:05 [place] # (Auto) 0.5 K/uL (0.0-1.0) 02/18/20 08:05 Eos # (Auto) 0.1 K/uL (0.0-0.4) 02/18/20 08:05 Baso # (Auto) 0.1 K/uL (0.0-0.2) 02/18/20 08:05 Sodium 134 mmol/L (136-145) L 02/20/20 09:55 Potassium 3.0 mmol/L (3.5-5.1) L 02/20/20 09:55 Chloride 95 mmol/L (98-107) L 02/20/20 09:55 Carbon Dioxide 26 mmol/L (23-29) 02/20/20 09:55 Anion Gap 16 (5-15) H 02/20/20 09:55 BUN 26 mg/dL (8-21) H 02/20/20 09:55 Creatinine 1.07 mg/dL (0.70-1.30) 02/20/20 09:55 Glucose 125 mg/dL (70-99) H 02/20/20 09:55 POC Glucose 132 MG/DL (70 - 105) H 02/13/20 02:47 Hemoglobin A1c 6.9 % (4.8-5.6) H 02/13/20 10:35 Calcium 10.0 mg/dL (8.4-10.2) 02/20/20 09:55 Total Bilirubin 0.7 mg/dL (0.0-1.0) 02/20/20 09:55 AST 30 U/L (10-37) 02/20/20 09:55 ALT 28 U/L (12-78) 02/20/20 09:55 Alkaline Phosphatase 99 U/L (46-116) 02/20/20 09:55 Total Protein 7.0 g/dL (6.4-8.3) 02/20/20 09:55 Albumin 3.4 g/dL (3.4-5.0) 02/20/20 09:55 Triglycerides 169 mg/dL (30-150) H 02/13/20 10:35 Cholesterol 206 mg/dL (<200) H 02/13/20 10:35 LDL Cholesterol 125 mg/dL (0-129) 02/13/20 10:35 HDL Cholesterol 53 mg/dL (>55) L 02/13/20 10:35 TSH 3.96 uIU/ml (0.358-3.740) H 02/15/20 13:30 Coronavirus (PCR) NOT DETECTED (NOT DETECTD) 02/13/20 18:40 - Physical Exam Vitals and I&O: Vital Signs Temp 97.3 F 02/24/20 14:00 Pulse 109 02/24/20 14:00 Resp 20 02/25/20 08:00 BP 152/97 02/24/20 14:00 Pulse Ox 90 02/24/20 14:00 Intake & Output 02/24/20 02/25/20 02/25/20 18:59 06:59 18:59 Intake Total 120 240 Output Total 2 Balance 120 238 Intake: Oral 120 240 Output: Urine/Stool Mix 2 Other: # Voids 1 1 # Bowel Movements 0 1 Active Medications: Current Medications Acetaminophen (Tylenol) 650 mg PO Q4H PRN PRN Reason: Pain (Mild 1-3) Stop: 04/13/20 03:15 Acetaminophen (Tylenol Extra Strength) 1,000 mg PO Q6H PRN PRN Reason: Pain (Moderate 4-6) Stop: 04/13/20 03:17 Al Hydrox/Mg Hydrox/Simethicone (Maalox) 30 ml PO Q4HR PRN PRN Reason: GI DISTRESS Stop: 04/13/20 03:29 Atorvastatin Calcium (Lipitor) 10 mg PO DAILY [facility]; Protocol Stop: 04/14/20 08:59 Last Admin: 02/25/20 08:49 Dose: Not Given Duloxetine HCl (Cymbalta) 60 mg PO DAILY [facility]; Protocol Stop: 04/14/20 09:59 Last Admin: 02/25/20 08:50 Dose: Not Given Ibuprofen (Motrin) 400 mg PO Q4H PRN PRN Reason: Pain (Severe 7-10) Stop: 04/13/20 03:17 Lorazepam (Ativan) 0.5 mg PO Q4HR PRN; Protocol PRN Reason: Anxiety Stop: 03/14/20 03:29 Last Admin: 02/22/20 08:27 Dose: 0.5 mg Magnesium Hydroxide (Milk Of Magnesia) 30 ml PO HS PRN PRN Reason: Constipation Metformin HCl (Glucophage) 500 mg PO DAILY [facility] Stop: 04/20/20 13:59 Last Admin: 02/25/20 08:50 Dose: Not Given Metoprolol Succinate (Toprol Xl) 50 mg PO DAILY [facility] Stop: 04/15/20 08:59 Last Admin: 02/25/20 08:50 Dose: Not Given Multivitamins/Vitamin C (Theragran) 1 tab PO DAILY [facility] Stop: 04/13/20 08:59 Last Admin: 02/25/20 08:50 Dose: Not Given Quetiapine Fumarate (Seroquel) 25 mg PO BID [facility]; Protocol Stop: 04/18/20 16:59 Last Admin: 02/25/20 08:50 Dose: Not Given Zolpidem Tartrate (Ambien) 5 mg PO HS PRN PRN Reason: Insomnia Stop: 04/13/20 03:29 General: weak HEENT: NC/AT, PERRLA, EOMI Neck: Supple Lungs: CTAB Cardiovascular: RRR, Normal S1, Normal S2 Abdomen: soft, non-tender Extremities: clear Neurological: no change - Procedures Procedures: Procedures Procedure Code Date APPLY FOREARM SPLINT 92508 11/07/15 GROUP PSYCHOTHERAPY 03807 11/20/15 GROUP PSYCHOTHERAPY GZHZZZZ 11/20/15 IMMOBILIZATION OF LEFT LOWER ARM USING SPLINT [id number] 11/07/15 OTHER GROUP THERAPY 94.44 11/20/14 REPOSITION LEFT RADIUS WITH INT FIX, OPEN APPROACH [id number] 11/16/15 TREAT FX RAD INTRA-ARTICUL 01421 11/16/15 Internal Medicine Assmt/Plan - Assessment Assessment: 1. DM, new diagnosis 2. HTN 3. Hypothyroidism 4. Hypokalemia - Plan Plan: continue glucophage repeat bmp stat d/w r.n. reviewed complete medical records Nutritional Asmnt/Malnutr-PDOC - Dietary Evaluation Malnutrition Findings (Please click <Entered> for more info): Nutritional Asmnt/Malnutrition Start: 02/15/20 11: 54 Text: Status: Complete Freq: Protocol: Document 02/15/20 12:02 ADIS (Rec: 02/15/20 12:14 ADIS [email or web address] [id number]) Nutritional Asmnt/Malnutrition Patient General Information Nutritional Screening Moderate Risk Diagnosis Psychosis Pertinent Medical Hx/Surgical Hx HTN, Hyperlipidemia Subjective Information Pt is a 75-year-old female admitted on 02/12 d/t grave disability and danger to self. Pt is eating an estimated 0- 75%% of meals Per Meal/ Nutrition Activity Record since admit date (x2 days), pt ate 75% meals on admit day and refused breakfast and lunch yesterday, eating 25% dinner. Dietary is currently providing an estimated 2020 kcals and 95 gm Pro. Visited pt in room, CLIFF stated the patient is refusing everything today, just having liquids. Got her a Glucerna shake in case she decides not to eat lunch. Pt did not want to talk further. Pt need some adjusting time, will F/U in 3- 5 days and continue to monitor PO intake and provide Glucerna as appropriate. Recommend adding CCHO to current diet d/t labs (02/12) A1c 6.9%, POC glucose 132. Anthropometrics HT: 58 WT: 203 LB (92.27 kg) ABW: 156 LB (70.80 kg) BMI: 30.87 (Obese, class I) GI/ Skin Integrity GI: WNL, Soft, Large, Non- tender BM: 02/12 x3 I/O: 980/Not Noted Skin: Wound and bruises, RT/LT hand bruise, LT Forearm skin tear Ari: 17 Diet Order: Cardiac Estimated Energy Needs: (Obese , ABW) 2834-7686 kcals (20-25 kcals/ kg) 60-70g Pro (0.8-1.0 g/kg) 9645-4246 ml (20-25 ml/kg) Current Diet Order/ Nutrition Support Cardiac Patient / S.O Can Pertinent Medications Maalox (PRN), Lipitor, Hydrochlorothiazide, MOM (PRN) , Theragran Pertinent Labs 02/12: Triglycerides 169, Cholesterol 206, HDL 53, A1c 6 .9%, POC glucose 132 Nutritional Hx/Data Height 1.73 m Height (Calculated Centimeters) 172.7 Current Weight (lbs) 92.079 kg Weight (Calculated Kilograms) 92.1 Weight (Calculated Grams) 87782.3 [place] Body Weight 140 LB (63.64 kg) % [place] Body Weight 145 Body Mass Index (BMI) 30.9 Weight Status Obese GI Symptoms Last BM 02/12 x3 Skin Integrity/Comment: Skin: Wound and bruises, RT/LT hand bruise, LT Forearm skin tear Ari: 17 Current %PO Fair (50-74%) Estimated Nutritional Goals BEE in Kcals: Adj wt of IBW Calories/Kcals/Kg 20-25 Kcals Calculated 4762-7822 Protein: Adj wt of IBW Protein g/k.8-1.0 Protein Calculated 60-70 Fluid: ml 3212-7932 ml (20-25 ml/kg) Nutritional Problem 2. Problem Problem Obese, class I Etiology r/t consistent energy overconsumption Signs/Symptoms: aeb BMI >30 (30.90). 1. Problem Problem Impaired nutrient utilization Etiology r/t endocrine dysfuction Signs/Symptoms: aeb labs (02/12) A1c 6.9%, POC glucose 132. Intervention/Recommendation Comments 1.Recommend adding CCHO to current diet Rx. 2.Provide Glucerna Hunger Smart as appropriate when PO < 50%. Expected Outcomes/Goals Expected Outcomes/Goals 1.PO intake to meet 75% of estimated nutritional needs. 2.Monitor PO intake, wt, nutrition related labs to trend WNL, and skin integrity to trend WNL. 3.F/U as moderate risk in 3-5 days, 02/17-02/19.
--- NOTE | 2020-02-26 00:23 | Progress Notes ---
DATE: 02/25/[address] England. Case was discussed with staff of the patient, reviewed records. The patient continues to refuse food, refused the medication. The patient when I first met her she believes she is here because she has some pain. She has been recently selectively mute, unable to participate in a meaningful conversation. She is unpredictable. She is withdrawn, keeping to herself. I will be initiating a reise her because of her refusal for medications, refusing to eat and continues to have poor insight, unpredictable, impulsive. We will continue to work with the patient in group therapy, milieu therapy, and adjust the medications as needed. JOB# [id number] FERNANDO
--- NOTE | 2020-02-26 00:26 | Progress Notes ---
DATE: 02/25/2020 ADDENDUM Case was discussed with staff of the patient, reviewed records, lab work. Also, I tried to talk to the patient about her medication. The patient talked to about what medication would take, why she is not taking her medication. I did list side effects. I asked her, she would say if there is any medication she would take that was prescribed for her; however, the patient responds by she would not answer me at all. She kept her eyes closed. I will be initiating a reise on her. We will continue outpatient group therapy, milieu therapy, adjust medication as needed. JOB# [id number] FERNANDO
[2020-02-26] MEDS: Multivitamin Tab PO SCH (08:30)
[2020-02-26] MEDS: Atorvastatin Calcium 10 MG TAB PO SCH (08:30)
--- NOTE | 2020-02-26 13:52 | Internal Medicine Prog Note ---
Internal Medicine Subjective - Subjective Service Date: 02/26/20 Patient seen and examined:: without staff Patient is:: awake Patient Complaints of:: congestion Per staff patient has:: no adverse event, no episodes of fall Internal Medicine Objective - Results Result Diagrams: 02/18/20 08:05 02/20/20 09:55 Recent Labs: Laboratory Last Values WBC 8.3 K/uL (4.8-10.8) 02/18/20 08:05 RBC 4.31 MIL/uL (4.2-6.2) 02/18/20 08:05 Hgb 12.9 g/dL (12.0-16.0) 02/18/20 08:05 Hct 37.6 % (36-48) 02/18/20 08:05 MCV 87 fL (79.0-98.0) 02/18/20 08:05 MCH 30 pg (27-31) 02/18/20 08:05 MCHC 34 % (32-36) 02/18/20 08:05 RDW 14.3 % (9.0-15.0) 02/18/20 08:05 Plt Count 202 K/uL (130-430) 02/18/20 08:05 MPV 9.4 fl (7.4-10.4) 02/18/20 08:05 Neut % (Auto) 64.6 % (40-70) 02/18/20 08:05 Lymph % (Auto) 27.4 % (20.5-51.5) 02/18/20 08:05 Rains % (Auto) 5.5 % (1.7-9.3) 02/18/20 08:05 Eos % (Auto) 1.4 % (0-4) 02/18/20 08:05 Baso % (Auto) 1.1 % (0.0-2.0) 02/18/20 08:05 Neut # (Auto) 5.3 K/uL (1.8-7.7) 02/18/20 08:05 Lymph # (Auto) 2.3 K/uL (1.0-5.5) 02/18/20 08:05 Rains # (Auto) 0.5 K/uL (0.0-1.0) 02/18/20 08:05 Eos # (Auto) 0.1 K/uL (0.0-0.4) 02/18/20 08:05 Baso # (Auto) 0.1 K/uL (0.0-0.2) 02/18/20 08:05 Sodium 134 mmol/L (136-145) L 02/20/20 09:55 Potassium 3.0 mmol/L (3.5-5.1) L 02/20/20 09:55 Chloride 95 mmol/L (98-107) L 02/20/20 09:55 Carbon Dioxide 26 mmol/L (23-29) 02/20/20 09:55 Anion Gap 16 (5-15) H 02/20/20 09:55 BUN 26 mg/dL (8-21) H 02/20/20 09:55 Creatinine 1.07 mg/dL (0.70-1.30) 02/20/20 09:55 Glucose 125 mg/dL (70-99) H 02/20/20 09:55 POC Glucose 132 MG/DL (70 - 105) H 02/13/20 02:47 Hemoglobin A1c 6.9 % (4.8-5.6) H 02/13/20 10:35 Calcium 10.0 mg/dL (8.4-10.2) 02/20/20 09:55 Total Bilirubin 0.7 mg/dL (0.0-1.0) 02/20/20 09:55 AST 30 U/L (10-37) 02/20/20 09:55 ALT 28 U/L (12-78) 02/20/20 09:55 Alkaline Phosphatase 99 U/L (46-116) 02/20/20 09:55 Total Protein 7.0 g/dL (6.4-8.3) 02/20/20 09:55 Albumin 3.4 g/dL (3.4-5.0) 02/20/20 09:55 Triglycerides 169 mg/dL (30-150) H 02/13/20 10:35 Cholesterol 206 mg/dL (<200) H 02/13/20 10:35 LDL Cholesterol 125 mg/dL (0-129) 02/13/20 10:35 HDL Cholesterol 53 mg/dL (>55) L 02/13/20 10:35 TSH 3.96 uIU/ml (0.358-3.740) H 02/15/20 13:30 Coronavirus (PCR) NOT DETECTED (NOT DETECTD) 02/13/20 18:40 - Physical Exam Vitals and I&O: Vital Signs Temp 97.8 F 02/26/20 05:56 Pulse 110 02/26/20 05:56 Resp 20 02/26/20 07:48 BP 125/70 02/26/20 05:56 Pulse Ox 89 02/26/20 05:56 Intake & Output 02/25/20 02/26/20 02/26/20 18:59 06:59 18:59 Intake Total 800 0 Balance 800 0 Intake: Oral 800 0 Other: # Voids 3 3 # Bowel Movements 1 0 Active Medications: Current Medications Acetaminophen (Tylenol) 650 mg PO Q4H PRN PRN Reason: Pain (Mild 1-3) Stop: 04/13/20 03:15 Acetaminophen (Tylenol Extra Strength) 1,000 mg PO Q6H PRN PRN Reason: Pain (Moderate 4-6) Stop: 04/13/20 03:17 Al Hydrox/Mg Hydrox/Simethicone (Maalox) 30 ml PO Q4HR PRN PRN Reason: GI DISTRESS Stop: 04/13/20 03:29 Atorvastatin Calcium (Lipitor) 10 mg PO DAILY ON LICENSE OF [facility]; Protocol Stop: 04/14/20 08:59 Last Admin: 02/26/20 08:30 Dose: Not Given Duloxetine HCl (Cymbalta) 60 mg PO DAILY ON LICENSE OF [facility]; Protocol Stop: 04/14/20 09:59 Last Admin: 02/26/20 08:30 Dose: Not Given Ibuprofen (Motrin) 400 mg PO Q4H PRN PRN Reason: Pain (Severe 7-10) Stop: 04/13/20 03:17 Lorazepam (Ativan) 0.5 mg PO Q4HR PRN; Protocol PRN Reason: Anxiety Stop: 03/14/20 03:29 Last Admin: 02/22/20 08:27 Dose: 0.5 mg Magnesium Hydroxide (Milk Of Magnesia) 30 ml PO HS PRN PRN Reason: Constipation Metformin HCl (Glucophage) 500 mg PO DAILY ON LICENSE OF [facility] Stop: 04/20/20 13:59 Last Admin: 02/26/20 08:30 Dose: Not Given Metoprolol Succinate (Toprol Xl) 50 mg PO DAILY ON LICENSE OF [facility] Stop: 04/15/20 08:59 Last Admin: 02/26/20 08:30 Dose: Not Given Multivitamins/Vitamin C (Theragran) 1 tab PO DAILY NUBIA Stop: 04/13/20 08:59 Last Admin: 02/26/20 08:30 Dose: Not Given Quetiapine Fumarate (Seroquel) 25 mg PO BID NUBIA; Protocol Stop: 04/18/20 16:59 Last Admin: 02/26/20 08:30 Dose: Not Given Zolpidem Tartrate (Ambien) 5 mg PO HS PRN PRN Reason: Insomnia Stop: 04/13/20 03:29 General: weak HEENT: NC/AT, PERRLA, EOMI Neck: Supple Lungs: CTAB Cardiovascular: RRR, Normal S1, Normal S2 Abdomen: soft, non-tender Extremities: clear Neurological: no change - Procedures Procedures: Procedures Procedure Code Date APPLY FOREARM SPLINT 02563 11/07/15 GROUP PSYCHOTHERAPY 85059 11/20/15 GROUP PSYCHOTHERAPY [id number] 11/20/15 IMMOBILIZATION OF LEFT LOWER ARM USING SPLINT [id number] 11/07/15 OTHER GROUP THERAPY 94.44 11/20/14 REPOSITION LEFT RADIUS WITH INT FIX, OPEN APPROACH [id number] 11/16/15 TREAT FX RAD INTRA-ARTICUL 13355 11/16/15 Internal Medicine Assmt/Plan - Assessment Assessment: 1. Failure to thrive 2. DM, New diagnosis 3. Hypothyroidism 4. Hypokalemia - Plan Plan: send to [facility] d/w r.n. d/w dr. Enamorado reviewed complete medical records Nutritional Asmnt/Malnutr-PDOC - Dietary Evaluation Malnutrition Findings (Please click <Entered> for more info): Nutritional Asmnt/Malnutrition Start: 02/15/20 11: 54 Text: Status: Complete Freq: Protocol: Document 02/15/20 12:02 ADIS (Rec: 02/15/20 12:14 ADIS [email or web address] [id number]) Nutritional Asmnt/Malnutrition Patient General Information Nutritional Screening Moderate Risk Diagnosis Psychosis Pertinent Medical Hx/Surgical Hx HTN, Hyperlipidemia Subjective Information Pt is a 75-year-old female admitted on 02/12 d/t grave disability and danger to self. Pt is eating an estimated 0- 75%% of meals Per Meal/ Nutrition Activity Record since admit date (x2 days), pt ate 75% meals on admit day and refused breakfast and lunch yesterday, eating 25% dinner. Dietary is currently providing an estimated 2020 kcals and 95 gm Pro. Visited pt in room, CLIFF stated the patient is refusing everything today, just having liquids. Got her a Glucerna shake in case she decides not to eat lunch. Pt did not want to talk further. Pt need some adjusting time, will F/U in 3- 5 days and continue to monitor PO intake and provide Glucerna as appropriate. Recommend adding CCHO to current diet d/t labs (02/12) A1c 6.9%, POC glucose 132. Anthropometrics HT: 58 WT: 203 LB (92.27 kg) ABW: 156 LB (70.80 kg) BMI: 30.87 (Obese, class I) GI/ Skin Integrity GI: WNL, Soft, Large, Non- tender BM: 02/12 x3 I/O: 980/Not Noted Skin: Wound and bruises, RT/LT hand bruise, LT Forearm skin tear Ari: 17 Diet Order: Cardiac Estimated Energy Needs: (Obese , ABW) 2601-7572 kcals (20-25 kcals/ kg) 60-70g Pro (0.8-1.0 g/kg) 7285-9530 ml (20-25 ml/kg) Current Diet Order/ Nutrition Support Cardiac Patient / S.O Can Pertinent Medications Maalox (PRN), Lipitor, Hydrochlorothiazide, MOM (PRN) , Theragran Pertinent Labs 02/12: Triglycerides 169, Cholesterol 206, HDL 53, A1c 6 .9%, POC glucose 132 Nutritional Hx/Data Height 1.73 m Height (Calculated Centimeters) 172.7 Current Weight (lbs) 92.079 kg Weight (Calculated Kilograms) 92.1 Weight (Calculated Grams) 24452.3 [place] Body Weight 140 LB (63.64 kg) % [place] Body Weight 145 Body Mass Index (BMI) 30.9 Weight Status Obese GI Symptoms Last BM 02/12 x3 Skin Integrity/Comment: Skin: Wound and bruises, RT/LT hand bruise, LT Forearm skin tear Ari: 17 Current %PO Fair (50-74%) Estimated Nutritional Goals BEE in Kcals: Adj wt of IBW Calories/Kcals/Kg 20-25 Kcals Calculated 7235-7590 Protein: Adj wt of IBW Protein g/k.8-1.0 Protein Calculated 60-70 Fluid: ml 0143-2454 ml (20-25 ml/kg) Nutritional Problem 2. Problem Problem Obese, class I Etiology r/t consistent energy overconsumption Signs/Symptoms: aeb BMI >30 (30.90). 1. Problem Problem Impaired nutrient utilization Etiology r/t endocrine dysfuction Signs/Symptoms: aeb labs (02/12) A1c 6.9%, POC glucose 132. Intervention/Recommendation Comments 1.Recommend adding CCHO to current diet Rx. 2.Provide Glucerna Hunger Smart as appropriate when PO < 50%. Expected Outcomes/Goals Expected Outcomes/Goals 1.PO intake to meet 75% of estimated nutritional needs. 2.Monitor PO intake, wt, nutrition related labs to trend WNL, and skin integrity to trend WNL. 3.F/U as moderate risk in 3-5 days, 02/17-02/19.
--- NOTE | 2020-02-26 16:34 | Progress Notes ---
DATE: 02/26/2020 SUBJECTIVE: Case was discussed with staff of the patient, reviewed records. The patient continues to refuse to eat, but she drank water only addressed with staff 3 days ago to send her to the hospital. They talked to Dr. White, but Dr. White felt it was not necessary. The patient was again send here right back, so anyway I again were trying to send her to a medical facility for hydration and observation in medical facility because she has not been eating for few days. The patient continues to be isolating, withdrawn, depressed. Continues to be psychotic, continues to have poor insight. I did initiate reise on her. We are still waiting for the date and currently she is not taking it and I will try to also call her to see what she think. She apparently will be going to a SNF facility upon discharge. We will continue outpatient group therapy, milieu therapy, and adjust medications as needed. I talked to her ,he reports history of psychosis and prior hospitalzation,did well on seroquel, and i explained to her her lack of progress and concern for her safety ,he is supportive of our plan to be sent to medical unit ,also for reise .,she will be transfered to [place] for further treatment ,i extended her hold for 30 days JOB# [id number] FERNANDO
== END 2020-02-26 21:00 | DRG 885 ==
LOC: GERO 02-13 02:15
PROVIDERS: ADMIT Psychiatry & Neurology Psychiatry; ATTEND Psychiatry & Neurology Psychiatry
DX: F33.3 Major depressive disorder, recurrent, severe with psychotic symptoms (principal); E11.65 Type 2 diabetes mellitus with hyperglycemia; I10 Essential (primary) hypertension; E78.5 Hyperlipidemia, unspecified; Z88.1 Allergy status to other antibiotic agents; Z88.0 Allergy status to penicillin; Z88.2 Allergy status to sulfonamides; Z88.8 Allergy status to other drugs, medicaments and biological substances; E03.9 Hypothyroidism, unspecified; E87.6 Hypokalemia; R62.7 Adult failure to thrive; Z20.828 Contact with and (suspected) exposure to other viral communicable diseases
CPT/HCPCS: 36415-UA; 80053-TC; 80061-TC; 82948-90; 83036-90; 84443-TC; 85025-TC; U0003-CS; X3904; Z7610